=== PATIENT | male | born 1950 | race Caucasian/White ===

== ENCOUNTER 2020-03-04 20:48 | Emergency (ER) | payer MEDICARE, OTHER, SELFPAY ==
[2020-03-04 20:53] VITALS: BP 180/117; PULSE 97; RESP 20; TEMP 36.7; O2SAT 97; BMI 31.1
--- NOTE | 2020-03-04 20:57 | ED_ITS ---
HPI - Allergic Reaction General: Chief complaint: General Medical Stated complaint: ALLERGIC REACTION Time Seen by Provider: 03/04/20 20:52 Source: patient and EMS Mode of arrival: EMS Limitations: no limitations History of Present Illness: MD complaint: allergic reaction and hives Onset (ago): hour(s) Exposure: food Known history of allergy to: 70-year-old man brought in by EMS for allergic reaction. EMS states when they arrived his complaint of difficulty breathing along with hives. Patient given Benadryl and Solu-Medrol in route and is improved. He denies any shortness of breath and has no rash at this time. No known history of allergic reactions. Associated symptoms: Reports tongue swelling; Deny abdominal pain, nausea or vomiting Severity: mild Treatment prior to arrival: benadryl and steroids Review of Systems Const: Denies: fever(s), chills, body aches or change in appetite Eyes: Denies: blurry vision or eye discomfort ENMT: Denies: throat pain or dental pain Card: Denies: chest pain Resp: Reports: dyspnea GI: Denies: abdominal pain, nausea, vomiting or diarrhea : Denies: dysuria Musc: Denies: neck pain or back pain Skin/Breast: Denies: rash Neuro: Denies: headache(s) Psych: Denies: depression Delroy/Lymph: Denies: easy bruising All/Imm: Reports: urticaria and tongue swelling PFSH ED PFSH: Social History Smoking and tobacco status: never smoked Physical Exam Const: COMMON NORMALS: no acute distress, patient oriented x3 and healthy appearing HENMT: COMMON NORMALS: normocephalic and atraumatic HEAD & SCALP: normocephalic and atraumatic Eye: COMMON NORMALS: Equal, round and reactive pupils present and EOMs intact bilaterally PUPIL: Yes Equal, round and reactive pupils present Neck/C-Spine: COMMON NORMALS: full ROM and supple Chest: COMMONS NORMALS: normal inspection of the chest and normal palpation of entire chest wall Resp: COMMON NORMALS: normal respiratory effort, No retractions, No use of accessory muscles and clear to auscultation bilaterally AUSCULTATION: clear to auscultation bilaterally Cardio: COMMON NORMALS: regular rate, regular rhythm and No murmurs present (Cardio) RATE: regular rate RHYTHM: regular rhythm GI: COMMON NORMALS: Normal to inspection, nondistended, normoactive bowel sounds present, Soft to palpation, non-tender and no masses PALPATION: Yes Soft to palpation Extremity: COMMON NORMALS: normal to inspection and full ROM Neuro: COMMON NORMALS: patient oriented x3, moves all extremities and no focal motor deficits Psych: COMMON NORMALS: mental status grossly normal, Normal thought process present and cooperative THOUGHT PROCESS: Normal thought process present Skin: COMMON NORMALS: no rashes or lesions noted and no wounds GENERAL SKIN EXAM: no rashes or lesions noted Course Vital Signs: Vital signs: Vital Signs Temperature 98.0 F 03/04/20 20:53 Pulse Rate 68 03/04/20 21:23 Respiratory Rate 16 03/04/20 21:23 Blood Pressure 168/91 03/04/20 21:23 Pulse Oximetry 98 03/04/20 21:23 MDM - Allergic Reaction MDM Narrative: Medical decision making narrative: Bari presents here with allergic reaction since resolved. Patient is well-appearing here and has no signs of allergic reaction here. Patient was observed and had no return of symptoms. Patient is stable for discharge is to return if worsening. He understands and agrees to plan. Discharge Plan Discharge Patient Disposition: Home, Self-Care Clinical Impression: Allergic reaction Qualifiers: Encounter type: initial encounter Qualified Code(s): T78.40XA - Allergy, unspecified, initial encounter Condition: Stable Prescriptions: New EpiPen 0.3 mg/0.3 mL auto-injector 0.3 mg IM Q10M PRN (Reason: anaphylaxis) Qty: 1 RF: 0 No Action losartan 50 mg tablet 25 mg PO DAILY RF: 0 atorvastatin 20 mg tablet 40 mg PO DAILY RF: 0 lamotrigine 200 mg tablet 200 mg PO DAILY RF: 0 clopidogrel 75 mg tablet 75 mg PO DAILY RF: 0 allopurinol 100 mg tablet 200 mg PO DAILY RF: 0 aspirin 325 mg tablet,delayed release (DR/EC) 325 mg PO DAILY RF: 0 omeprazole 20 mg capsule,delayed release(DR/EC) 20 mg PO PRN PRN (Reason: HEARTBURN/GERD) RF: 0 metoprolol succinate 25 mg tablet extended release 24 hr 25 mg PO DAILY RF: 0 Vitamin D2 1,250 mcg (50,000 unit) Capsule 1,250 mcg PO Q7D RF: 0 Discharge Orders: Discharge Order (Routine); Ordered 03/04/20 Ordered By: Mary Fortune Referrals: Valentin Valiente, [Primary Care Provider] - 4-7 days Discharge Diet: Advance as tolerated Discharge Activity: Resume usual activity Patient Instructions: Urticaria (ED) Coding Level of Care Code ED [employer] Consultant for Chg Fwd Exam Comprehensive
[2020-03-04 21:23] VITALS: BP 168/91; PULSE 68; RESP 16; O2SAT 98
[2020-03-04] MEDS: diphenhydrAMINE 50 mg/mL SDV 1mL 25 MG IVP (21:37)
[2020-03-04] MEDS: famotidine 20 mg/2 mL INJ 40 MG IVP (21:37)
[2020-03-04 23:14] VITALS: BP 175/92; PULSE 65; RESP 16; O2SAT 100
--- NOTE | 2020-03-04 23:17 | PC.NURSE ---
Pt. up for discharge. Reports increased swelling to throat and mouth. MD Dominguez notified.
--- NOTE | 2020-03-04 23:26 | PC.NURSE ---
Pt. evaluated by . Cleared for discharge. IV D/C'd intact. Pressure dressing in place
[2020-03-04 23:27] VITALS: BP 164/88; PULSE 61; RESP 16; O2SAT 96
== END 2020-03-04 23:28 | disposition home or self-care (01) ==
PROVIDERS: Emergency Provider Emergency Medicine; PCP Family Medicine
DX: T78.40XA Allergy, unspecified, initial encounter (principal); Z79.02 Long term (current) use of antithrombotics/antiplatelets; Z79.82 Long term (current) use of aspirin
CPT/HCPCS: 12345; 96374; 96375; 99282; 99283; J1200; J3490

== ENCOUNTER 2020-03-12 10:40 | Outpatient (CLI) | payer MEDICARE, OTHER, SELFPAY ==
--- NOTE | 2020-03-12 10:50 | MR_ITS ---
WS: [id number] MRA HEAD TECHNIQUE: Axial 3-D TOF images obtained with axial images and axial, sagittal, and coronal 2-D refor matted images. CLINICAL INFORMATION: BASILAR ARTERY ANEURYSM COMPARISON: MRA 02/07/2019 and 06/08/2018 FINDINGS: Again seen is the basilar tip aneurysm measuring approximately 3.6 mm. This is unchanged in appearanc e since the prior examination. Distal vertebral arteries are patent. Normal vascularity to the [place] MANA[employer] te rritory bilaterally. Both ICAs are patent at the skull base. Normal vascularity to the WANDA and MCA te rritories bilaterally. Patent anterior communicating artery. Hypoplastic right A1 segment. 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 This is unchanged in a ppearance since the prior examinations. MR/MR angio head wo con [id number] IMPRESSION: 1. 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 2. Incidental normal variant hypoplastic right A1. 3. Otherwise unremarkable intracranial MRA. 4. No changes from 02/07/2019 and 06/08/2018
== END 2020-03-12 10:41 | disposition home or self-care (01) ==
LOC: RADSHAW 10:47
PROVIDERS: PCP Family Medicine; Visit Provider Specialist
DX: I72.5 Aneurysm of other precerebral arteries (principal)
CPT/HCPCS: 70544

== ENCOUNTER → 2020-03-25 10:37 | Outpatient (BNVA) | payer MEDICARE, OTHER, SELFPAY | PROVIDERS: PCP Family Medicine; Visit Provider Specialist | DX: G40.209 Localization-related (focal) (partial) symptomatic epilepsy and epileptic syndromes with complex partial seizures, not intractable, without status epilepticus (principal); I72.5 Aneurysm of other precerebral arteries | CPT/HCPCS: 99214 ==

== ENCOUNTER 2020-05-14 14:46 | Outpatient (CLI) | payer MEDICARE, OTHER, SELFPAY ==
--- NOTE | 2020-05-14 15:00 | USCV_ITS ---
Bari Oliva Age: 70 Gender: M : 1950 Exam Date: 05/14/2020 15:02 Ordering Phys: Robe Woodard MD ([email or web address]) Technologist: Boo Ashby Exam Location: [facility] – [place] Indication: BILATERAL CAROTID STENOSIS Risk Factors: Previous Vascular Surgery: LT CAROTID STENT Right Brachial BP: / Left Brachial BP: / Right Left Velocity (cm/s) Spectral Plaque Velocity (cm/s) Spectral Plaque Syst/Diast Broadening Syst/Diast Broadening 64.10/ 18.80 Prox CCA 114.70/ 24.30 67.60/ 16.30 Mid CCA 98.10 / 24.30 43.80/ 12.30 Distal CCA 103.60/ 26.50 155.10/43.40 Prox ICA 97.00 / 32.00 116.40/34.20 Mid ICA 98.10 / 29.80 98.20/ 25.60 Distal ICA 102.50/ 33.10 38.50 ECA 142.20 1.72 ICA/CCA 1.00 Antegrade Vertebral Antegrade 69.80/ 14.90 cm/s 93.70/ 24.30 cm/s Tri Subclavian Tri 83.70 143.3 0 FINDINGS Comparison:. 05/17/18. Left carotid stent is patent without stenosis. Diffuse plaque throughout the right carotid artery without significant stenosis. Antegrade vertebral arteries. CONCLUSIONS Bilateral ICA stenosis less than 50%. Moderate diffuse plaque right carotid. Dr. Vashti Proctor DO (Electronically Signed) Final Date: 15 May 2020 09:01 S
== END 2020-05-14 14:47 | disposition home or self-care (01) ==
LOC: US 14:47
PROVIDERS: PCP Family Medicine; Visit Provider Internal Medicine Cardiovascular Disease
DX: I65.23 Occlusion and stenosis of bilateral carotid arteries (principal)
CPT/HCPCS: 93880

== ENCOUNTER 2020-11-15 15:00 | Emergency (ER) | payer MEDICARE, OTHER, SELFPAY ==
[2020-11-15 15:04] VITALS: BP 201/84; PULSE 77; RESP 18; TEMP 36.7; O2SAT 98; BMI 30.9
--- NOTE | 2020-11-15 15:22 | CT_ITS ---
WS: [id number] CT HEAD NONCONTRAST HISTORY: STROKE ALERT TECHNIQUE: Contiguous axial imaging performed through the brain in 2.5 mm imaging. Bone and soft tiss ue windows. Sagittal and coronal reformats reviewed. All CT scans at [facility] use at ast one of these dose optimization techniques: automated exposure control; mA and/or kV adjustment pe r patient size (includes targeted exams where dose is matched to clinical indication); or iterative r econstruction. DLP: 883.70 mGy-cm. COMPARISON: 03/19/2019 No acute intracranial hemorrhage, midline shift or mass effect. Large remote LEFT posterior frontal and parietal infarct with encephalomalacia. Mild increase in size of the infarct but no acute change. Mild chronic microvascular ischemic disease in the RIGHT white m atter. Ventricles: Normal size with no hydrocephalus. Paranasal sinuses: As visualized are clear. Mastoid air cells: Well pneumatized. Calvarium and scalp: Skull is intact with no soft tissue edema or swelling. Moderate calcification and plaque in the distal carotid arteries. CT/CT head wo con* [id number] IMPRESSION: 1. No acute intracranial hemorrhage or edema. 2. Large remote LEFT frontal parietal infarct. Notified Ellen Bianchi MD [facility] [place], [place] at 11/15/2020 3:27 PM.
--- NOTE | 2020-11-15 15:28 | ECG_ITS ---
[facility] Test Date: 2020-11-15 Pat Name: Bari Oliva Department: Room: Gender: Male Fire Marshal: : 1950 Requested By: Ellen Bianchi I Order Number: [id number] Casper MD: Krystina Albrecht M.D. Measurements Intervals [place] Rate: 68 P: 74 WI: 229 QRS: -57 QRSD: 145 T: 61 QT: 402 QTc: 428 Interpretive Statements SINUS RHYTHM WITH FIRST DEGREE AV BLOCK RIGHT BUNDLE BRANCH BLOCK [120+ ms QRS DURATION, UPRIGHT V1, 40+ ms S IN I/aVL/V4/V5/V6] LEFT ANTERIOR FASCICULAR BLOCK [QRS AXIS <= -45, QR IN I, RS IN II] INFERIOR MYOCARDIAL INFARCTION , OF INDETERMINATE AGE [40+ ms Q WAVE AND/OR ST/T ABNORMALITY IN II/aVF] Compared to ECG 03/20/2019 00:19:10 Left anterior fascicular block now present Myocardial infarct finding now present Sinus bradycardia no longer present Indeterminate axis no longer present Electronically Signed On 11-15-2020 16:09:23 BRASS MOLDER by Krystina Albrecht M.D. [id number]
--- NOTE | 2020-11-15 15:30 | PC.NURSE ---
Patient blood glucose is 96, nurse and doctor were notified
[2020-11-15 15:33] LABS: Add Urine Microscopic? NO
[2020-11-15 15:39] LABS: Basophils % 0.6 %; Eosinophils # 0.1 10^3/uL (0.0-0.8); Eosinophils % 2.1 %; Hematocrit 45.4 % (42.0-52.0); Hemoglobin 15.2 g/dL (11.7-16.6); Lymphocytes # 1.1 10^3/uL (0.8-4.8); Lymphocytes % 16.1 %; Mean Corpuscular HGB Conc 33.5 g/dL (30.0-36.0); Mean Corpuscular Hemoglobin 30.8 pg (28.0-34.0); Mean Corpuscular Volume 91.9 fL (80-94); Mean Platelet Volume 9.6 fL (7.4-10.4); Monocytes # 0.7 10^3/uL (0.2-0.9); Monocytes % 9.8 %; Neutrophils # 4.69 10^3/uL (1.8-7.7); Neutrophils % 71.1 %; Nucleated Red Blood Cells % 0 %; Platelet Count 204 10^3/cmm (130-400); Red Blood Count 4.94 10^6/uL (4.1-5.3); Red Cell Distribution Width 12.3 % (12.1-15.1); White Blood Count 6.6 10^3/uL (4.0-10.0)
[2020-11-15 15:46] LABS: INR 0.99 (0.8-1.2)
[2020-11-15 15:47] LABS: Partial Thromboplastin Time 29.5 SECONDS (23.9-36.7)
[2020-11-15 15:53] LABS: Alanine Aminotransferase 24 U/L (0-41); Albumin Level 4.4 g/dL (3.5-5.2); Alkaline Phosphatase 135 IU/L (40-130); Anion Gap 11.9 (5-19); Aspartate Amino Transferase 24 U/L (0-40); Bilirubin Urine Neg (Negative); Blood Urea Nitrogen 15 mg/dL (8-23); Blood Urine Neg (Negative); Calcium 9.3 mg/dL (8.5-10.5); Carbon Dioxide 30 mmol/L (22-29); Chloride 102 mmol/L (98-107); Globulin 2.9 g/dL (1.3-4.6); Glomerular Filtration Rate 95.8 mL/min (90-130); Glucose 91 mg/dL (65-115); Glucose Urine UA Norm (Normal); Ketones Urine Negative (Negative); Leukocyte Esterase Urine Negative (Negative); Nitrate Urine Negative (Negative); Osmolality Calculated 290 mOsm/kg (285-295); Potassium 3.9 mmol/L (3.5-5.1); Protein Urine Neg (Negative); Sodium 140 mmol/L (136-145); Specific Gravity, Urine 1.005 (1.005-1.030); Total Bilirubin 0.4 mg/dL (0.15-1.2); Total Protein 7.3 g/dL (6.6-8.7); Urine Appearance Clear (CLEAR); Urine Color Colorless (Yellow); Urobilinogen Urine Norm (Negative); pH Urine 6 (5-7)
[2020-11-15 15:57] LABS: Amphetamines Screen Urine Negative (Negative); Barbiturates Screen Urine Negative (Negative); Benzodiazepines Screen Urine Negative (Negative); Cocaine Screen Urine Negative (Negative); Opiate Screen Urine Negative (Negative); PCP Screen Urine Negative (Negative); THC Screen Urine Negative (Negative)
--- NOTE | 2020-11-15 16:00 | CTR_ITS ---
PROCEDURE INFORMATION: Exam: CT Angiography Head With Contrast Exam date and time: 11/15/2020 4:28 PM Age: 70 years old Clinical indication: Prior surgery; Surgery date: 6+ months; Surgery type: Carotid; Patient HX: R sided weakness, dizziness, HTN HX of CVA; Additional info: Stroke-like symptoms TECHNIQUE: Imaging protocol: Computed tomography angiography of the head with intravenous contrast. 3D rendering (Not supervised by radiologist): MIP and/or 3D reconstructed images were created by the technologist. Radiation optimization: All CT scans at this facility use at least one of these dose optimization techniques: automated exposure control; mA and/or kV adjustment per patient size (includes targeted exams where dose is matched to clinical indication); or iterative reconstruction. Contrast material: OMNI 350; Contrast volume: 95 ml; Contrast route: INTRAVENOUS (IV); COMPARISON: CT head wo con* [id number] 11/15/2020 3:32 PM RADIATION DOSE METRICS: Total DLP (mGy-cm): 2501.88 FINDINGS: ANTERIOR CIRCULATION: Right internal carotid artery: Unremarkable. Intracranial segment is patent with no significant stenosis. No aneurysm. Right middle cerebral artery: Unremarkable. No occlusion or significant stenosis. No aneurysm. Right anterior cerebral artery: Unremarkable. No occlusion or significant stenosis. No aneurysm. Left internal carotid artery: Unremarkable. Intracranial segment is patent with no significant stenosis. No aneurysm. Left middle cerebral artery: Unremarkable. No occlusion or significant stenosis. No aneurysm. Left anterior cerebral artery: Unremarkable. No occlusion or significant stenosis. No aneurysm. POSTERIOR CIRCULATION: Right vertebral artery: Unremarkable. No occlusion or significant stenosis. No aneurysm. Left vertebral artery: Unremarkable. No occlusion or significant stenosis. No aneurysm. Basilar artery: Unremarkable. No occlusion or significant stenosis. No aneurysm. Right posterior cerebral artery: Unremarkable. No occlusion or significant stenosis. No aneurysm. Left posterior cerebral artery: Unremarkable. No occlusion or significant stenosis. No aneurysm. Brain: Old area of encephalomalacia in the posterior left frontal lobe. No intracranial hemorrhage. No midline shift of brain. Cerebral ventricles: No ventriculomegaly. Orbital cavity: Left globe lens replacement. Orbits otherwise unremarkable. Bones/joints: Unremarkable. No acute fracture. Soft tissues: Unremarkable. IMPRESSION: Unremarkable CT angiogram head. No acute large arterial vessel occlusion identified. PROCEDURE INFORMATION: Exam: CT Angiography Neck With Contrast Exam date and time: 11/15/2020 4:28 PM Age: 70 years old Clinical indication: Prior surgery; Surgery date: 6+ months; Surgery type: Carotid; Patient HX: R sided weakness, dizziness, HTN HX of CVA; Additional info: Stroke-like symptoms TECHNIQUE: Imaging protocol: Computed tomography angiography of the neck with intravenous contrast. 3D rendering (Not supervised by radiologist): MIP and/or 3D reconstructed images were created by the technologist. Radiation optimization: All CT scans at this facility use at least one of these dose optimization techniques: automated exposure control; mA and/or kV adjustment per patient size (includes targeted exams where dose is matched to clinical indication); or iterative reconstruction. Contrast material: OMNI 350; Contrast volume: 95 ml; Contrast route: INTRAVENOUS (IV); COMPARISON: CT head wo con* [id number] 11/15/2020 3:32 PM RADIATION DOSE METRICS: Total DLP (mGy-cm): 2501.88 FINDINGS: Right common carotid artery: No significant stenosis. No dissection or occlusion. Mild to moderate atherosclerotic plaque. Right internal carotid artery: Large atherosclerotic plaque volume at the origin of the right internal carotid artery with severe stenosis estimated greater than 70%. Right external carotid artery: Large atherosclerotic plaque volume at the origin of the right external carotid artery with severe stenosis greater than 90%. Right vertebral artery: No stenosis. No dissection or occlusion. Left common carotid artery: Moderate circumferential calcified and noncalcified atherosclerotic plaque left common carotid artery with mild stenosis significantly less than 50%. Endovascular stent within the distal left common carotid artery extends into the proximal left internal carotid artery. The stent is patent. Mild stenosis in the distal margin of the stent approaching 50%, however appears less than 50% at this time. Left internal carotid artery: No occlusion. No dissection. Proximal portion is stented. Mild stenosis approaching 50% in the distal portion. Left external carotid artery: Large atherosclerotic plaque volume at the origin of the left external carotid artery which is also covered by the endovascular stent. Left vertebral artery: No stenosis. No dissection or occlusion. Bones/joints: No acute fracture. Soft tissues: Normal. No significant soft tissue swelling. CT/CT angio headneck* [id number] IMPRESSION: 1. No acute arterial occlusion in the neck. 2. Left carotid artery stenting without complication. 3. Severe stenosis of the right internal carotid artery estimated greater than 70%. 4. Recommend carotid artery evaluation with duplex ultrasound analysis. REFERENCES: NASCET CRITERIA. The degree of internal carotid artery stenosis is based on NASCET criteria. Normal is no stenosis. Mild is less than 50% stenosis. Moderate is 50-69% stenosis. Severe is 70% to 99% stenosis. Total occlusion is no detectable patent lumen. Radiation Dose CTDIVOL = (mGy): DLP = 2501.88~2501.88 (mGy-cm)
[2020-11-15] MEDS: iohexol 350 mg/mL 100 mL Btl IV (16:41)
--- NOTE | 2020-11-15 17:35 | W.ED.NEUROSD ---
HPI - Neuro Symptoms/Deficit General: Chief Complaint: Neuro Symptoms/Deficit Stated Complaint: pt suspects stroke Time Seen by Provider: 11/15/20 15:28 Source: patient, family and EMS Mode of arrival: EMS Limitations: no limitations History of Present Illness: HPI Narrative: The patient is a 70-year-old male with a prior history of CVA x3, he has residual right-sided weakness. He states that today about 2 hours prior to arrival he noticed his right upper and lower extremities were he also felt his coordination was not the same. He therefore came in for evaluation. He denies any chest pain, denies any dizziness, denies any shortness of breath. Onset (ago): hour(s) (2) Location: right arm and right leg History of same: Yes Severity: mild Quality: weak Relieving factors: none Exacerbating factors: none Context: sudden onset On Anticoagulants: No Associated symptoms: Deny chest pain, cough, diaphoresis, fevers/chills, headache(s), anorexia, malaise, nausea, seizures, short of breath, syncope, tingling, vertigo, vomiting or weakness Treatments Prior to Arrival: none Review of Systems General: Reports: 10 or more systems reviewed and unremarkable except in HPI and below Const: Denies: malaise or diaphoresis Eyes: Denies: change in vision or blurry vision ENMT: Denies: throat pain, enlarged tonsils, odynophagia, hoarseness, mouth pain or swelling of lips/tongue Card: Denies: chest pain or syncope Resp: Denies: dyspnea, productive cough or non-productive cough GI: Denies: nausea or vomiting : Denies: flank pain, dysuria, urinary frequency, urinary urgency or urinary hesitancy Musc: Denies: neck pain, back pain or extremity swelling Skin/Breast: Denies: rash, pruritus or erythema Neuro: Denies: headache(s) or vertigo Endo: Denies: polyuria, polydipsia or tired all the time [facility] ED PFSH: Medical History Carotid stenosis, bilateral CVA (cerebral vascular accident) History of common carotid artery stent placement FLOWER (obstructive sleep apnea) PVD (peripheral vascular disease) Family History Mother Cancer LUNG Grandmother Stroke MATERNAL Social History Smoking and tobacco status: former smoker Marital status: History of recent travel: No NIH stroke score NIHSS: Level Of Consciousness - 1a: 0 Level Of Consciousness Questions - 1b: Both Correct Level Of Consciousness Commands - 1c: Both Correct Best Gaze - 2: Normal Visual Moralez - 3: No Visual Loss Facial Palsy - 4: Normal Motor Arm Right - 5: No Drift Motor Arm Left - 5: No Drift Motor Leg Right - 6: No Drift Motor Leg Left - 6: No Drift Limb Ataxia - 7: Present In One Limb (right upper extremity) Sensory - 8: Mild To Moderate Loss Best Language - 9: No Aphasia Dysarthia - 10: Normal Extinction And Inattention - 11: 0 Score: Total Score: 2 Physical Exam Const: COMMON NORMALS: no acute distress, average body habitus, patient oriented x3, no limitations, healthy appearing, alert and well nourished HENMT: COMMON NORMALS: normocephalic, atraumatic and moist oral mucous membranes HEAD & SCALP: normocephalic and atraumatic Eye: COMMON NORMALS: Equal, round and reactive pupils present, EOMs intact bilaterally, conjunctivae normal and no scleral icterus CONJUNCTIVA: Yes conjunctivae normal PUPIL: Yes Equal, round and reactive pupils present Neck/C-Spine: COMMON NORMALS: no meningeal signs and no JVD Resp: COMMON NORMALS: normal respiratory effort, No retractions, No use of accessory muscles, clear to auscultation bilaterally and percussion normal AUSCULTATION: clear to auscultation bilaterally PERCUSSION: percussion normal Cardio: COMMON NORMALS: no JVD, regular rate, regular rhythm, S1 normal heart sound present, S2 normal heart sound present, No gallops present (Cardio), No clicks present (Cardio), No murmurs present (Cardio), No rub (Cardio) and Peripheral pulses 2+ throughout RATE: regular rate RHYTHM: regular rhythm HEART SOUNDS: S1 normal heart sound present and S2 normal heart sound present PERIPHERAL PULSES: Peripheral pulses 2+ throughout GI: COMMON NORMALS: Normal to inspection, nondistended, normoactive bowel sounds present, Soft to palpation, non-tender, No hepatosplenomegaly present, no masses and no bruits PALPATION: Yes Soft to palpation and Yes No hepatosplenomegaly present Extremity: COMMON NORMALS: normal to inspection, full ROM, capillary refill normal, no calf tenderness and no pedal edema Neuro: COMMON NORMALS: patient oriented x3 SENSORIUM/ORIENTATION: Yes alert MENINGEAL SIGNS: Yes no meningeal signs Skin: COMMON NORMALS: no rashes or lesions noted, no wounds, turgor normal, no jaundice, no petechiae and no mottling GENERAL SKIN EXAM: no rashes or lesions noted and turgor normal Course Reevaluation(s): Reevaluation #1: Discussed his lab and imaging findings with him including his head CT and head and neck CTA. Explained that he has a right carotid artery stenosis of at least 70%. Discussed options with him including hospital admission versus outpatient therapy. The patient elected to be discharged home and already has a carotid Doppler scheduled. I will put in an order to case management to see if we can get the Doppler done sooner to see if he needs surgery since he has some symptoms. NIHSS is low and symptoms are resolved so I think it is reasonable for him to be discharged home. Time: 17:36 Consultations: Consultation #1: Discussed the patient with Dr. Ponce, neurologist. She does not think this is a new CVA. She states that the patient is well known to her. She will therefore sign off on the care. Time: 15:35 Vital Signs: Vital signs: Vital Signs Temperature 98.1 F 11/15/20 15:04 Pulse Rate 63 11/15/20 17:58 Respiratory Rate 18 11/15/20 17:58 Blood Pressure 121/75 11/15/20 17:58 Pulse Oximetry 95 11/15/20 17:58 MDM - Neuro Symptoms/Deficit MDM Narrative: Medical decision making narrative: Patient is a 70 year old male with a prior history of CVA who presents to the emergency department with subjective feeling of right-sided weakness that is worse than his baseline. On examination there is no appreciable deficits on the right side. NIHSS is pretty low at 2. Head CT negative, head and neck CTA shows right carotid artery disease. The patient already knows this and is scheduled for a carotid Doppler in March. The patient opted to be discharged home instead of admission for further work-up. Since he is NIHSS is low and he is on the appropriate medical therapy I think it is reasonable for him to be discharged home. Will try to get him to get his carotid doppler sooner than March since he is symptomatic. Medical Records: Attestation: I reviewed the patient's medical records. Lab Data: Attestation: I reviewed the patient's lab results. Labs: Lab Results 11/15/20 11/15/20 11/15/20 Range/Units 15:28 15:28 15:28 WBC 6.6 (4.0-10.0) 10^3/ uL RBC 4.94 (4.1-5.3) 10^6/u L Hgb 15.2 (11.7-16.6) g/dL Hct 45.4 (42.0-52.0) % MCV 91.9 (80-94) fL MCH 30.8 (28.0-34.0) pg MCHC 33.5 (30.0-36.0) g/dL RDW 12.3 (12.1-15.1) % Plt Count 204 (130-400) 10^3/c mm MPV 9.6 (7.4-10.4) fL Neut % (Auto) 71.1 % Lymph % (Auto) 16.1 % Amelia % (Auto) 9.8 % Eos % (Auto) 2.1 % Baso % (Auto) 0.6 % Neut # (Auto) 4.69 (1.8-7.7) 10^3/u L Lymph # (Auto) 1.1 (0.8-4.8) 10^3/u L Amelia # (Auto) 0.7 (0.2-0.9) 10^3/u L Eos # (Auto) 0.1 (0.0-0.8) 10^3/u L Baso # (Auto) 0.0 (0.0-0.1) 10^3/u L Nucleated RBC % (a uto) 0 % Nucleated RBCs # 0.0 /100WBC PT 13.40 (12.1-14.9) SECO NDS INR 0.99 (0.8-1.2) APTT 29.5 (23.9-36.7) SECO NDS Sodium 140 (136-145) mmol/L Potassium 3.9 (3.5-5.1) mmol/L Chloride 102 (98-107) mmol/L Carbon Dioxide 30 H (22-29) mmol/L Anion Gap 11.9 (5-19) BUN 15 (8-23) mg/dL Creatinine 0.8 (0.7-1.2) mg/dL GFR Calculation 95.8 (90-130) mL/min Glucose 91 (65-115) mg/dL Calculated Osmolal ity 290 (285-295) mOsm/k g Calcium 9.3 (8.5-10.5) mg/dL Total Bilirubin 0.4 (0.15-1.2) mg/dL AST 24 (0-40) U/L ALT 24 (0-41) U/L Alkaline Phosphata se 135 H (40-130) IU/L Total Protein 7.3 (6.6-8.7) g/dL Albumin 4.4 (3.5-5.2) g/dL Globulin 2.9 (1.3-4.6) g/dL Urine Color (Yellow) Urine Appearance (CLEAR) Urine pH (5-7) Ur Specific Gravit y (1.005-1.030) Urine Protein (Negative) Urine Glucose (UA) (Normal) Urine Ketones (Negative) Urine Blood (Negative) Urine Nitrate (Negative) Urine Bilirubin (Negative) Urine Urobilinogen (Negative) mg/dL Ur Leukocyte Jeanine ase (Negative) Urine Opiates Scre en (Negative) ng/mL Ur Barbiturates Sc reen (Negative) ng/mL Ur Phencyclidine S crn (Negative) ng/mL Ur Amphetamines Sc reen (Negative) ng/mL U Benzodiazepines Scrn (Negative) ng/mL Urine Cocaine Scre en (Negative) ng/mL U Marijuana (THC) Screen (Negative) ng/mL 11/15/20 11/15/20 Range/Units 15:28 15:28 WBC (4.0-10.0) 10^3/ uL RBC (4.1-5.3) 10^6/u L Hgb (11.7-16.6) g/dL Hct (42.0-52.0) % MCV (80-94) fL MCH (28.0-34.0) pg MCHC (30.0-36.0) g/dL RDW (12.1-15.1) % Plt Count (130-400) 10^3/c mm MPV (7.4-10.4) fL Neut % (Auto) % Lymph % (Auto) % Amelia % (Auto) % Eos % (Auto) % Baso % (Auto) % Neut # (Auto) (1.8-7.7) 10^3/u L Lymph # (Auto) (0.8-4.8) 10^3/u L Amelia # (Auto) (0.2-0.9) 10^3/u L Eos # (Auto) (0.0-0.8) 10^3/u L Baso # (Auto) (0.0-0.1) 10^3/u L Nucleated RBC % (a uto) % Nucleated RBCs # /100WBC PT (12.1-14.9) SECO NDS INR (0.8-1.2) APTT (23.9-36.7) SECO NDS Sodium (136-145) mmol/L Potassium (3.5-5.1) mmol/L Chloride (98-107) mmol/L Carbon Dioxide (22-29) mmol/L Anion Gap (5-19) BUN (8-23) mg/dL Creatinine (0.7-1.2) mg/dL GFR Calculation (90-130) mL/min Glucose (65-115) mg/dL Calculated Osmolal ity (285-295) mOsm/k g Calcium (8.5-10.5) mg/dL Total Bilirubin (0.15-1.2) mg/dL AST (0-40) U/L ALT (0-41) U/L Alkaline Phosphata se (40-130) IU/L Total Protein (6.6-8.7) g/dL Albumin (3.5-5.2) g/dL Globulin (1.3-4.6) g/dL Urine Color Colorless (Yellow) Urine Appearance Clear (CLEAR) Urine pH 6 (5-7) Ur Specific Gravit y 1.005 (1.005-1.030) Urine Protein Neg (Negative) Urine Glucose (UA) Norm (Normal) Urine Ketones Negative (Negative) Urine Blood Neg (Negative) Urine Nitrate Negative (Negative) Urine Bilirubin Neg (Negative) Urine Urobilinogen Norm (Negative) mg/dL Ur Leukocyte Jeanine ase Negative (Negative) Urine Opiates Scre en Negative (Negative) ng/mL Ur Barbiturates Sc reen Negative (Negative) ng/mL Ur Phencyclidine S crn Negative (Negative) ng/mL Ur Amphetamines Sc reen Negative (Negative) ng/mL U Benzodiazepines Scrn Negative (Negative) ng/mL Urine Cocaine Scre en Negative (Negative) ng/mL U Marijuana (THC) Screen Negative (Negative) ng/mL Imaging Data^: CT Head: Attestation: I personally reviewed and interpreted this imaging study as follows: Radiologist's impression: [facility] [address] [facility] [address] CT Scan Report Signed Patient: Bari Oliva #: [id number] : 1Acct#:[id number] Age/Sex: 70 / MADM Date: 11/15/20 Loc: ERRoom/Bed: Attending Dr: Ordering Provider/Ordering MD: Ellen Bianchi MD, [facility] Date of Service: 11/15/20 Procedure(s): CT head wo con* [id number] Accession Number(s): [id number] Report Number: [id number] WS: [id number] CT HEAD NONCONTRAST HISTORY: STROKE ALERT TECHNIQUE: Contiguous axial imaging performed through the brain in 2.5 mm imaging. Bone and soft tissue windows. Sagittal and coronal reformats reviewed. All CT scans at [facility] use at least one of these dose optimization techniques: automated exposure control; mA and/or kV adjustment per patient size (includes targeted exams where dose is matched to clinical indication); or iterative reconstruction. DLP: 883.70 mGy-cm. COMPARISON: 03/19/2019 No acute intracranial hemorrhage, midline shift or mass effect. Large remote LEFT posterior frontal and parietal infarct with encephalomalacia. Mild increase in size of the infarct but no acute change. Mild chronic microvascular ischemic disease in the RIGHT white matter. Ventricles: Normal size with no hydrocephalus. Paranasal sinuses: As visualized are clear. Mastoid air cells: Well pneumatized. Calvarium and scalp: Skull is intact with no soft tissue edema or swelling. Moderate calcification and plaque in the distal carotid arteries. CT/CT head wo con* [id number] IMPRESSION: 1. No acute intracranial hemorrhage or edema. 2. Large remote LEFT frontal parietal infarct. Notified Ellen Bianchi MD [facility] at 11/15/2020 3:27 PM. Dictated By:Vashti Proctor DO Signed By:Vashti Proctor DOSigned Date/Time:11/15/20 1528 DD/ [address]: Attestation: I personally reviewed and interpreted this imaging study as follows: Radiologist's impression: [address] [address] [address] Scan Report Signed Patient: Bari Oliva #: [id number] : 1950cct#:[id number] Age/Sex: 70 / MADM Date: 11/15/20 Loc: ERRoom/Bed: Attending Dr: Ordering Provider/Ordering MD: Ellen Bianchi MD, [facility] Date of Service: 11/15/20 Procedure(s): CT angio headneck* [id number] Accession Number(s): [id number] Report Number: [id number] PROCEDURE INFORMATION: Exam: CT Angiography Head With Contrast Exam date and time: 11/15/2020 4:28 PM Age: 70 years old Clinical indication: Prior surgery; Surgery date: 6+ months; Surgery type: Carotid; Patient HX: R sided weakness, dizziness, HTN HX of CVA; Additional info: Stroke-like symptoms TECHNIQUE: Imaging protocol: Computed tomography angiography of the head with intravenous contrast. 3D rendering (Not supervised by radiologist): MIP and/or 3D reconstructed images were created by the technologist. Radiation optimization: All CT scans at this facility use at least one of these dose optimization techniques: automated exposure control; mA and/or kV adjustment per patient size (includes targeted exams where dose is matched to clinical indication); or iterative reconstruction. Contrast material: OMNI 350; Contrast volume: 95 ml; Contrast route: INTRAVENOUS (IV); COMPARISON: CT head wo con* [id number] 11/15/2020 3:32 PM RADIATION DOSE METRICS: Total DLP (mGy-cm): 2501.88 FINDINGS: ANTERIOR CIRCULATION: Right internal carotid artery: Unremarkable. Intracranial segment is patent with no significant stenosis. No aneurysm. Right middle cerebral artery: Unremarkable. No occlusion or significant stenosis. No aneurysm. Right anterior cerebral artery: Unremarkable. No occlusion or significant stenosis. No aneurysm. Left internal carotid artery: Unremarkable. Intracranial segment is patent with no significant stenosis. No aneurysm. Left middle cerebral artery: Unremarkable. No occlusion or significant stenosis. No aneurysm. Left anterior cerebral artery: Unremarkable. No occlusion or significant stenosis. No aneurysm. POSTERIOR CIRCULATION: Right vertebral artery: Unremarkable. No occlusion or significant stenosis. No aneurysm. Left vertebral artery: Unremarkable. No occlusion or significant stenosis. No aneurysm. Basilar artery: Unremarkable. No occlusion or significant stenosis. No aneurysm. Right posterior cerebral artery: Unremarkable. No occlusion or significant stenosis. No aneurysm. Left posterior cerebral artery: Unremarkable. No occlusion or significant stenosis. No aneurysm. Brain: Old area of encephalomalacia in the posterior left frontal lobe. No intracranial hemorrhage. No midline shift of brain. Cerebral ventricles: No ventriculomegaly. Orbital cavity: Left globe lens replacement. Orbits otherwise unremarkable. Bones/joints: Unremarkable. No acute fracture. Soft tissues: Unremarkable. IMPRESSION: Unremarkable CT angiogram head. No acute large arterial vessel occlusion identified. PROCEDURE INFORMATION: Exam: CT Angiography Neck With Contrast Exam date and time: 11/15/2020 4:28 PM Age: 70 years old Clinical indication: Prior surgery; Surgery date: 6+ months; Surgery type: Carotid; Patient HX: R sided weakness, dizziness, HTN HX of CVA; Additional info: Stroke-like symptoms TECHNIQUE: Imaging protocol: Computed tomography angiography of the neck with intravenous contrast. 3D rendering (Not supervised by radiologist): MIP and/or 3D reconstructed images were created by the technologist. Radiation optimization: All CT scans at this facility use at least one of these dose optimization techniques: automated exposure control; mA and/or kV adjustment per patient size (includes targeted exams where dose is matched to clinical indication); or iterative reconstruction. Contrast material: OMNI 350; Contrast volume: 95 ml; Contrast route: INTRAVENOUS (IV); COMPARISON: CT head wo con* [id number] 11/15/2020 3:32 PM RADIATION DOSE METRICS: Total DLP (mGy-cm): 2501.88 FINDINGS: Right common carotid artery: No significant stenosis. No dissection or occlusion. Mild to moderate atherosclerotic plaque. Right internal carotid artery: Large atherosclerotic plaque volume at the origin of the right internal carotid artery with severe stenosis estimated greater than 70%. Right external carotid artery: Large atherosclerotic plaque volume at the origin of the right external carotid artery with severe stenosis greater than 90%. Right vertebral artery: No stenosis. No dissection or occlusion. Left common carotid artery: Moderate circumferential calcified and noncalcified atherosclerotic plaque left common carotid artery with mild stenosis significantly less than 50%. Endovascular stent within the distal left common carotid artery extends into the proximal left internal carotid artery. The stent is patent. Mild stenosis in the distal margin of the stent approaching 50%, however appears less than 50% at this time. Left internal carotid artery: No occlusion. No dissection. Proximal portion is stented. Mild stenosis approaching 50% in the distal portion. Left external carotid artery: Large atherosclerotic plaque volume at the origin of the left external carotid artery which is also covered by the endovascular stent. Left vertebral artery: No stenosis. No dissection or occlusion. Bones/joints: No acute fracture. Soft tissues: Normal. No significant soft tissue swelling. CT/CT angio headneck* [id number] IMPRESSION: 1. No acute arterial occlusion in the neck. 2. Left carotid artery stenting without complication. 3. Severe stenosis of the right internal carotid artery estimated greater than 70%. 4. Recommend carotid artery evaluation with duplex ultrasound analysis. REFERENCES: NASCET CRITERIA. The degree of internal carotid artery stenosis is based on NASCET criteria. Normal is no stenosis. Mild is less than 50% stenosis. Moderate is 50-69% stenosis. Severe is 70% to 99% stenosis. Total occlusion is no detectable patent lumen. Radiation Dose CTDIVOL = (mGy): DLP = 2501.88~2501.88 (mGy-cm) Dictated By:Robe Luna Signed By:Sussy Luna Date/Time:11/15/201714 DD/ 12 EKG Data^: EKG 1: Attestation: I personally reviewed and interpreted this EKG as follows: EKG interpretation date: 11/15/20 EKG interpretation time: 15:26 Prior EKG tracings: not available for review Interpretation: Sinus rhythm with first-degree AV block. Heart rate 68 bpm. Right bundle branch block. Left anterior fascicular block. No ST changes. Discharge Plan Discharge Patient Disposition: Home Clinical Impression: Carotid stenosis, bilateral Transient cerebral ischemia Qualifiers: Transient cerebral ischemia type: unspecified Qualified Code(s): G45.9 - Transient cerebral ischemic attack, unspecified Condition: Stable Prescriptions: Continued clopidogrel 75 mg tablet 75 mg PO DAILY@09 RF: 0 epinephrine [EpiPen] 0.3 mg/0.3 mL auto-injector 0.3 mg IM Q10M PRN (Reason: anaphylaxis) Qty: 1 RF: 0 losartan 50 mg tablet 25 mg PO DAILY@09 RF: 0 atorvastatin 20 mg tablet 20 mg PO DAILY@21 RF: 0 allopurinol 100 mg tablet 200 mg PO DAILY@09 RF: 0 aspirin 325 mg tablet,delayed release (DR/EC) 325 mg PO DAILY@09 RF: 0 omeprazole 20 mg capsule,delayed release(DR/EC) 20 mg PO QPM PRN (Reason: Heartburn) RF: 0 ergocalciferol (vitamin D2) [Vitamin D2] 1,250 mcg (50,000 unit) Capsule 50,000 unit PO Q7D RF: 0 metoprolol succinate 25 mg tablet extended release 24 hr 12.5 mg PO DAILY@09 RF: 0 lamotrigine 200 mg tablet 200 mg PO BID@ RF: 0 Discharge Orders: Discharge ED (Routine); Ordered 11/15/20 Ordered By: Ellen Bianchi Referrals: Valentin Valiente DO [Primary Care Provider] - 1-3 days Discharge Diet: Usual diet Discharge Activity: Increase activity as tolerated Patient Instructions: Transient Ischemic Attack (ED), Carotid Artery Disease (GEN) Activity Restrictions/Additional Instructions: Return for any new or worsening symptoms. Follow-up with your primary care provider within 3 days. You will be contacted to see if we can get a carotid ultrasound done sooner than it is already scheduled. Continue home medications. Coding Level of Care Code ED Human Resources Assistant Manager for Bre Fwd Exam Comprehensive
[2020-11-15 17:58] VITALS: BP 121/75; PULSE 63; RESP 18; O2SAT 95
--- NOTE | 2020-11-18 12:18 | DCPLANNER ---
commodity manager had message to speak with centralized scheduling to see if patients appointment for the carotid doppler could be moved up any sooner than when it was scheduled at this time. commodity manager called centralized scheduling, spoke with Allie, asked if the procedure could be moved up. commodity manager was told that either Dr. Bianchi could write a new order for patient and send it to centralized scheduling. commodity manager was also told that embedded case manager could call the office of Dr. Narayanan, and ask if the ordering physician would send a message to centralized scheduling to move the scheduled date up. Dr. Bianchi is not working in the ER today, so embedded case manager called [facility] and spoke with Divya. commodity manager explained that patient was recently seen in the ER and that the ER physician would like for the carotid duplex that is scheduled to be moved up. commodity manager asked if a message could be sent to the ordering physician to see if this was possible for the appointment to be moved up. commodity manager was told that a message was sent to Dr. Bill nurse to see if appointment could be moved up.
--- NOTE | 2020-11-26 08:05 | DCPLANNER ---
Patient had a follow up appointment scheduled for 11.25.20 for a carotid duplex - patient did attend appointment.
== END 2020-11-15 17:59 | disposition home or self-care (01) ==
PROVIDERS: Emergency Provider Family Medicine; PCP Family Medicine
DX: I65.23 Occlusion and stenosis of bilateral carotid arteries (principal); G45.9 Transient cerebral ischemic attack, unspecified; Z79.82 Long term (current) use of aspirin; Z79.02 Long term (current) use of antithrombotics/antiplatelets; Z86.73 Personal history of transient ischemic attack (TIA), and cerebral infarction without residual deficits; Z87.891 Personal history of nicotine dependence; Z79.899 Other long term (current) drug therapy
CPT/HCPCS: 70450; 70496; 70498; 80053; 80306; 81003; 85025; 85610; 85730; 93005; 99283; Q9967

== ENCOUNTER 2020-11-25 12:41 | Outpatient (CLI) | payer MEDICARE, OTHER, SELFPAY ==
--- NOTE | 2020-11-25 12:45 | USCV_ITS ---
Bari Oliva Age: 70 Gender: M : 1950 Exam Date: 11/25/2020 13:16 Ordering Phys: Charlie Conn M.D ([email or web address]) Technologist: Boo Ashby Exam Location: [facility] Indication: OCCLUSION AND STENOSIS OF BILATERAL CAROTID ARTERIES Risk Factors: Previous Vascular Surgery: LT ICA STENT Right Brachial BP: / Left Brachial BP: / Right Left Velocity (cm/s) Spectral Plaque Velocity (cm/s) Spectral Plaque Syst/Diast Broadening Syst/Diast Broadening 72.20/ 11.10 Prox CCA 82.20 / 19.10 55.90/ 13.80 Mid CCA 80.00 / 20.20 51.30/ 12.00 Distal CCA 87.00 / 17.10 126.70/34.40 Prox ICA 57.50 / 15.50 96.05/ 27.20 Mid ICA 97.40 / 36.70 78.60/ 22.60 Distal ICA 79.50 / 30.80 30.80 ECA 159.10 2.27 ICA/CCA 1.22 Antegrade Vertebral Antegrade 70.80/ 18.70 cm/s 67.50/ 22.20 cm/s Tri Subclavian Tri 62.00 95.70 FINDINGS Comparison:. 05/14/20. Diffuse bilateral scattered calcified plaque and intimal thickening throughout the common carotid arteries and extending through the bifurcation. Tortuosity and mild elevation of velocities. Antegrade vertebral arteries. CONCLUSIONS Bilateral ICA stenosis less than 50%. No interval change in stenosis since prior exam. Diffuse mild atherosclerosis. Dr. Vashti Proctor DO (Electronically Signed) Final Date: 25 November 2020 16:11 S
== END 2020-11-25 12:42 | disposition home or self-care (01) ==
LOC: RAD 12:42
PROVIDERS: PCP Family Medicine; Visit Provider Internal Medicine
DX: I65.23 Occlusion and stenosis of bilateral carotid arteries (principal)
CPT/HCPCS: 93880

== ENCOUNTER → 2021-07-28 14:57 | Outpatient (BNVA) | payer MEDICARE, OTHER, SELFPAY | PROVIDERS: PCP Family Medicine; Visit Provider Specialist | DX: G40.209 Localization-related (focal) (partial) symptomatic epilepsy and epileptic syndromes with complex partial seizures, not intractable, without status epilepticus (principal); I65.21 Occlusion and stenosis of right carotid artery; I72.5 Aneurysm of other precerebral arteries; I73.9 Peripheral vascular disease, unspecified; Z98.890 Other specified postprocedural states; Z95.828 Presence of other vascular implants and grafts; G47.33 Obstructive sleep apnea (adult) (pediatric); Z71.89 Other specified counseling | CPT/HCPCS: 99214; 99215 ==

== ENCOUNTER 2021-08-20 10:45 | Outpatient (CLI) | payer MEDICARE, OTHER, SELFPAY ==
--- NOTE | 2021-08-20 11:00 | CT_ITS ---
WS: [id number] CTA HEAD AND NECK TECHNIQUE: Contrast enhanced CTA of the head and neck with coronal and sagittal reformatted images an d maximum intensity projection (MIP) images. NASCET criteria utilized. CLINICAL INFORMATION: I65.23 - Occlusion and stenosis of bilateral carotid josefina... COMPARISON: CTA 2020 DLP: 1290.[address] scans at [facility] use at least one of these dose optimization techniques: automated e xposure control; mA and/or kV adjustment per patient size (includes targeted exams where dose is matc hed to clinical indication); or iterative reconstruction. FINDINGS: RIGHT: Right common carotid artery is patent. Moderate calcified irregular atheromatous disease right carotid bulb extending into the ICA with greater than 70% stenosis. Stenosis measures approximately 70-75% 1.3 cm distal to the bifurcation unchanged from previous. Right ICA remains patent to the skull base. ECA is occluded or nearly occluded at the origin with rec onstitution. This is unchanged in appearance compared to previous. LEFT: Left common carotid artery is patent. Prior left carotid stent is patent. No significant recurr ent stenosis. Left ICA is patent to the skull base. Tortuous left cervical ICA. INTRACRANIAL CTA: Both vertebral arteries are patent. Basilar artery is patent. Normal vascularity to the GROUND SYSTEMS ENGINEER territory bilaterally. Both ICAs are patent at the skull base. Moderate cavernous carotid calcification. Normal vascularity to the WANDA and MCA territories bilaterally. Hypoplastic right A1 segment. No evidence of high-grade p roximal stenosis or aneurysm. Mastoid air cells are well aerated. Paranasal sinuses are well aerated.Chronic encephalomalacia in th e left parietal lobe from prior infarct. This is unchanged in appearance. Normal posterior nasopharyn x. Lung apices are well aerated. Slight anterolisthesis C2 on C3. Mild spondylitic changes cervical spine. CT/CT angio headneck* [id number] IMPRESSION: 1. Right ICA stenosis 1.3 cm from the bifurcation measures 70-75% unchanged fr om previous. 2. Left carotid stent. No significant recurrent stenosis. 3. Both vertebral arteries are patent. 4. Normal intracranial CTA. 5. Chronic infarct left parietal lobe with encephalomalacia unchanged from pre vious.
[2021-08-20] MEDS: iohexol 350 mg/mL 100 mL Btl IV (12:31)
== END 2021-08-20 10:46 | disposition home or self-care (01) ==
PROVIDERS: PCP Family Medicine; Visit Provider Specialist
DX: I65.23 Occlusion and stenosis of bilateral carotid arteries (principal)
CPT/HCPCS: 70496; 70498; 82565; 84520; Q9967

== ENCOUNTER → 2021-09-29 08:26 | Outpatient (BNVA) | payer MEDICARE, OTHER, SELFPAY | PROVIDERS: PCP Family Medicine; Visit Provider Specialist | DX: G40.209 Localization-related (focal) (partial) symptomatic epilepsy and epileptic syndromes with complex partial seizures, not intractable, without status epilepticus (principal); G40.309 Generalized idiopathic epilepsy and epileptic syndromes, not intractable, without status epilepticus; I72.5 Aneurysm of other precerebral arteries; I65.21 Occlusion and stenosis of right carotid artery | CPT/HCPCS: 99214 ==

== ENCOUNTER 2021-11-26 10:50 | Outpatient (CLI) | payer MEDICARE, OTHER, SELFPAY ==
--- NOTE | 2021-11-26 11:00 | USCV_ITS ---
HazelBari Age: 71 Gender: M : 1950 Exam Date: 11/26/2021 11:16 Ordering Phys: Asa Celis MD (Andy) ([email or web address]/[facility] [place]) Technologist: [place] [facility] [place]ication: cca disease HX LT ENDART Risk Factors: Previous Vascular Surgery: Right Brachial BP: / Left Brachial BP: / Right Left Velocity (cm/s) Spectral Plaque Velocity (cm/s) Spectral Plaque Syst/Diast Broadening Syst/Diast Broadening 41.60/ 13.30 Prox CCA 88.10 / 15.70 41.00/ 13.90 Hetro Mid CCA 71.20 / 13.30 Hetro 65.80/ 21.10 Hetro Distal CCA 56.30 / 10.70 Hetro 156.03/28.13 Hetro Prox ICA 82.00 / 17.20 Hetro 131.50/22.90 Hetro Mid ICA 97.20 / 32.40 Hetro 115.90/27.80 Distal ICA 96.20 / 26.30 55.45 ECA 162.40 2.44 ICA/CCA 1.10 Antegrade Vertebral Antegrade 86.90/ 22.90 cm/s 70.90/ 11.10 cm/s Tri Subclavian Tri 117.1 101.2 0 0 FINDINGS Mild to moderate diffuse irregular plaques in the common carotid arteries bilaterally. Mild to moderate plaques at the left bifurcation and ICA Moderate to heavy heterogeneous plaque at the right bifurcation and internal carotid artery Antegrade flow in the vertebral arteries bilaterally. Normal Doppler flow velocities in the external carotid, vertebral and subclavian arteries bilaterally CONCLUSIONS Moderate to heavy heterogeneous plaque at the right bifurcation and internal carotid artery with velocity elevation, suggestive of 50 to 69% stenosis. Mild to moderate plaques at the left bifurcation, suggesting less than 50% stenosis Mild to moderate diffuse irregular plaques in the common carotid arteries bilaterally. Compared to the study from 11/25/2020, there is worsening of the stenosis on the right side Dr Krystina Albrecht MD [facility] (Electronically Signed) Final Date: 27 November 2021 10:13 S
== END 2021-11-26 10:51 | disposition home or self-care (01) ==
LOC: RAD 10:54
PROVIDERS: PCP Family Medicine; Visit Provider Thoracic Surgery (Cardiothoracic Vascular Surgery)
DX: I65.23 Occlusion and stenosis of bilateral carotid arteries (principal)
CPT/HCPCS: 93880

== ENCOUNTER → 2022-03-24 11:37 | Outpatient (BNVA) | payer MEDICARE, OTHER, SELFPAY | PROVIDERS: PCP Family Medicine; Visit Provider Family Medicine | DX: F41.9 Anxiety disorder, unspecified (principal); G47.33 Obstructive sleep apnea (adult) (pediatric); E79.0 Hyperuricemia without signs of inflammatory arthritis and tophaceous disease; I63.9 Cerebral infarction, unspecified; I10 Essential (primary) hypertension; E78.5 Hyperlipidemia, unspecified | CPT/HCPCS: 80053; 80061; 82607; 83036; 84550 ==

== ENCOUNTER 2022-05-29 11:16 | Outpatient (CLI) | payer MEDICARE, OTHER, SELFPAY ==
--- NOTE | 2022-05-29 11:15 | USCV_ITS ---
Bari Oliva Age: 72 Gender: M : 1950 Exam Date: 05/29/2022 11:30 Ordering Phys: Asa Celis MD (Andy) ([email or web address] [place]) Technologist: FAUZIA [place] [facility] [place]: H/O LEFT STENT. EVAL FOR CAROTID STENOSIS Risk Factors: Previous Vascular Surgery: Right Brachial BP: / Left Brachial BP: / Right Left Velocity (cm/s) Spectral Plaque Velocity (cm/s) Spectral Plaque Syst/Diast Broadening Syst/Diast Broadening 97.50/ 7.30 Prox CCA 105.30/ 18.40 49.60/ 13.70 Mid CCA 113.10/ 27.60 42.10/ 13.10 Distal CCA 106.90/ 20.90 128.70/35.20 Prox ICA 63.10 / 17.70 149.00/31.10 Mid ICA 105.80/ 35.30 70.80/ 21.90 Distal ICA 83.50 / 31.70 90.00 ECA 197.90 1.53 ICA/CCA 0.94 Antegrade Vertebral Antegrade 70.90/ 12.00 cm/s 88.90/ 22.20 cm/s Tri Subclavian Tri 155.1 172.5 0 0 FINDINGS Comparison:. 11/26/21 Diffuse bilateral scattered calcified plaque and intimal thickening throughout the common carotid arteries and extending through the bifurcation. Surface of plaque is irregular. Velocity in right ICA is not is increased as on the prior exam. Bilateral antegrade vertebral arteries. CONCLUSIONS Bilateral ICA stenosis less than 50%. Velocity has decreased since the prior exam in the right ICA. Heterogenous plaque, bilateral. Dr. Vashti Proctor DO (Electronically Signed) Final Date: 29 May 2022 13:48 S
== END 2022-05-29 11:17 | disposition home or self-care (01) ==
LOC: RAD 11:18
PROVIDERS: PCP Family Medicine; Visit Provider Thoracic Surgery (Cardiothoracic Vascular Surgery)
DX: I65.23 Occlusion and stenosis of bilateral carotid arteries (principal)
CPT/HCPCS: 93880

== ENCOUNTER → 2022-06-18 12:56 | Outpatient (BNVA) | payer MEDICARE, OTHER, SELFPAY | PROVIDERS: PCP Family Medicine; Visit Provider Internal Medicine | DX: I25.10 Atherosclerotic heart disease of native coronary artery without angina pectoris (principal); I72.5 Aneurysm of other precerebral arteries; I65.23 Occlusion and stenosis of bilateral carotid arteries; G47.33 Obstructive sleep apnea (adult) (pediatric); I10 Essential (primary) hypertension; Z87.891 Personal history of nicotine dependence; Z86.73 Personal history of transient ischemic attack (TIA), and cerebral infarction without residual deficits | CPT/HCPCS: 99214 ==

== ENCOUNTER → 2022-07-02 10:32 | Outpatient (BNVA) | payer MEDICARE, OTHER, SELFPAY | PROVIDERS: PCP Family Medicine; Visit Provider Thoracic Surgery (Cardiothoracic Vascular Surgery) | DX: I65.21 Occlusion and stenosis of right carotid artery (principal); Z87.891 Personal history of nicotine dependence | CPT/HCPCS: 99213 ==

== ENCOUNTER → 2022-09-17 11:09 | Outpatient (BNVA) | payer MEDICARE, OTHER, SELFPAY | PROVIDERS: PCP Family Medicine; Visit Provider Family Medicine | DX: I10 Essential (primary) hypertension (principal); I72.5 Aneurysm of other precerebral arteries; I63.9 Cerebral infarction, unspecified; I73.9 Peripheral vascular disease, unspecified; G47.33 Obstructive sleep apnea (adult) (pediatric); E55.9 Vitamin D deficiency, unspecified | CPT/HCPCS: 80053; 80061; 82306; 85025 ==

== ENCOUNTER → 2022-11-25 10:05 | Outpatient (BNVA) | payer MEDICARE, OTHER, SELFPAY | PROVIDERS: PCP Family Medicine; Visit Provider Specialist | DX: I72.5 Aneurysm of other precerebral arteries (principal); G40.209 Localization-related (focal) (partial) symptomatic epilepsy and epileptic syndromes with complex partial seizures, not intractable, without status epilepticus; I65.23 Occlusion and stenosis of bilateral carotid arteries | CPT/HCPCS: 99214 ==

== ENCOUNTER 2022-12-30 11:48 | Outpatient (CLI) | payer MEDICARE, OTHER, SELFPAY ==
--- NOTE | 2022-12-30 11:45 | MR_ITS ---
WS: [id number] MRA HEAD TECHNIQUE: Axial 3-D TOF images obtained with axial images and axial, sagittal, and coronal 2-D refor matted images. CLINICAL INFORMATION: I65.23 - Occlusion and stenosis of bilateral carotid josefina... 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 This is unchanged in appearance since the prior examination. Distal vertebral arteries are patent. Normal va scularity to the SUPERVISOR [employer]TERATION WORKROOM territory bilaterally. Both ICAs are patent at the skull base. Normal vascularity to the WANDA and MCA territories bilaterally. Patent anterior communicating artery. Hypoplastic right A1 segment. Chronic infarct in the left frontal parietal junction with encephalomal acia and gliosis. This is unchanged in appearance compared to previous. MR/MR angio head wo con [id number] IMPRESSION: 1. 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 Incidental normal variant hypoplastic right A1. 3. Otherwise unremarkable intracranial MRA. 4. No changes from March 02, 2020
== END 2022-12-30 11:49 | disposition home or self-care (01) ==
LOC: RAD 11:54
PROVIDERS: PCP Family Medicine; Visit Provider Specialist
DX: I72.5 Aneurysm of other precerebral arteries (principal); I65.23 Occlusion and stenosis of bilateral carotid arteries; G40.209 Localization-related (focal) (partial) symptomatic epilepsy and epileptic syndromes with complex partial seizures, not intractable, without status epilepticus
CPT/HCPCS: 70544

== ENCOUNTER 2023-01-08 15:06 | Outpatient (CLI) | payer MEDICARE, OTHER, SELFPAY ==
--- NOTE | 2023-01-08 | MR_ITS ---
WS: [id number] MRA CAROTID ARTERIES HISTORY: BILATERAL CAROTID ARTERY STENOSIS, history of LEFT carotid stent. COMPARISON: Carotid ultrasound 05/29/2022. TECHNIQUE: 2-D [id number] imaging. No contrast. MIP and source images are reviewed. Right: . Limited visualization of the cervical carotid arteries. The carotid arteries patent. Left: Limited visualization of the cervical carotid artery. Carotid artery is patent. Vertebral Arteries: Patent. There is a small tiny filling defect in the mid RIGHT vertebral artery wh ich may be a focal plaque. Not completely occluded. MR/MR angio neck wo con [id number] IMPRESSION: 1. Nearly nondiagnostic evaluation of the carotid arteries. No occlusions iden tified. 2. Small filling defect in the mid RIGHT cervical portion of the vertebral art yunier. No occlusion.
== END 2023-01-08 15:07 | disposition home or self-care (01) ==
LOC: RAD 15:14
PROVIDERS: PCP Family Medicine; Visit Provider Specialist
DX: I65.23 Occlusion and stenosis of bilateral carotid arteries (principal)
CPT/HCPCS: 70547

== ENCOUNTER 2023-02-10 12:10 | Emergency (ER) | payer MEDICARE, OTHER, SELFPAY ==
[2023-02-10 12:12] VITALS: BP 201/79; PULSE 59; RESP 16; TEMP 36.4; O2SAT 98; BMI 33.9
--- NOTE | 2023-02-10 12:20 | ECG_ITS ---
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 Measurements Intervals [place] Rate: 54 P: 109 TX: 245 QRS: -25 QRSD: 150 T: 41 QT: 450 QTc: 429 Interpretive Statements SINUS BRADYCARDIA WITH FIRST DEGREE AV BLOCK BORDERLINE LEFT AXIS DEVIATION [QRS AXIS < -20] RIGHT BUNDLE BRANCH BLOCK [120+ ms QRS DURATION, UPRIGHT V1, 40+ ms S IN I/aVL/V4/V5/V6] Compared to ECG 11/15/2020 15:26:44 Sinus rhythm no longer present Left anterior fascicular block no longer present Myocardial infarct finding no longer present Electronically Signed On 02-10-2023 17:46:56 CDT by Charlie Conn M.D. [id number]
[2023-02-10 12:28] VITALS: BP 201/89; O2SAT 98
--- NOTE | 2023-02-10 12:45 | XR_ITS ---
WS: [id number] Portable AP upright chest, 02/10/2023 Clinical Data: dyspnea/cough Comparison: Portable chest, 03/19/2019 Findings: No nodules, masses or effusions are seen. The heart is normal. The pulmonary vascularity is not increased. No pneumonia or pneumothorax is seen. The aortic arch and descending thoracic aorta s how mild tortuosity. There is a retrocardiac scar in the left lower lobe unchanged. The patient is ro tated and there is a slight dextroscoliosis. XR/XR chest 1V portable [id number] Impression: Atherosclerosis.
[2023-02-10] MEDS: meclizine 25 mg tablet PO (13:00)
[2023-02-10] MEDS: sodium chloride 0.9% 500 ML 999 ML IV (13:00)
[2023-02-10 13:07] VITALS: BP 179/89; BP 184/85; BP 193/85; PULSE 55; PULSE 58; PULSE 61
[2023-02-10 13:10] LABS: Basophils % 0.8 %; Eosinophils # 0.1 10^3/uL (0.0-0.8); Eosinophils % 2.5 %; Hematocrit 44.2 % (42.0-52.0); Hemoglobin 14.7 g/dL (11.7-16.6); Lymphocytes # 0.7 10^3/uL (0.8-4.8); Lymphocytes % 13.9 %; Mean Corpuscular HGB Conc 33.3 g/dL (30.0-36.0); Mean Corpuscular Hemoglobin 30.7 pg (28.0-34.0); Mean Corpuscular Volume 92.3 fl (80-94); Mean Platelet Volume 9.9 fL (7.4-10.4); Monocytes # 0.5 10^3/uL (0.2-0.9); Monocytes % 9.1 %; Neutrophils # 3.87 10^3/uL (1.8-7.7); Neutrophils % 73.7 %; Nucleated Red Blood Cells % 0 %; Platelet Count 193 10^3/cmm (130-400); Red Blood Count 4.79 10^6/uL (4.1-5.3); Red Cell Distribution Width 12.7 % (12.1-15.1); White Blood Count 5.3 10^3/uL (4.0-10.0)
--- NOTE | 2023-02-10 13:26 | CT_ITS ---
WS: [id number] CT HEAD NONCONTRAST HISTORY: dizziness, htn TECHNIQUE: Contiguous axial imaging performed through the brain in 2.5 mm imaging. Bone and soft tiss ue windows. Sagittal and coronal reformats reviewed. All CT scans at [facility] use at least one of these dose optimization techniques: automated exposure control; mA and/or kV adjustment per pa tient size (includes targeted exams where dose is matched to clinical indication); or iterative recon struction. DLP: 1359.29 mGy.cm COMPARISON: 11/15/2020 No acute intracranial hemorrhage, midline shift or mass effect. Encephalomalacia LEFT frontal parietal region from a remote large territory infarct. No new infarcts are identified. Ventricles: Normal size with no hydrocephalus. No inferior displacement of cerebellar tonsils. Paranasal sinuses: As visualized are clear. Mastoid air cells: Well pneumatized. Calvarium and scalp: Skull is intact with no soft tissue edema or swelling. Mild intracranial carotid calcifications. CT/CT head wo con* [id number] IMPRESSION: 1. No acute intracranial hemorrhage or edema. 2. Large remote infarct involving the posterior LEFT frontal parietal region w ith encephalomalacia.
--- NOTE | 2023-02-10 13:26 | ED_ITS ---
HPI - Dizziness General: Chief Complaint: Dizziness Stated Complaint: DIZZY/ HEADACHE Time Seen by Provider: 02/10/23 12:41 Source: patient Mode of arrival: ambulatory History of Present Illness: HPI Narrative: 73-year-old male presents emergency room with complaints of dizziness that is worse when he moves in certain directions when he lays very still he does not have the dizziness. He does get true vertiginous-like symptoms began with a headache this morning around 11. Blood pressure was elevated when he went to the fire department and then he was referred here. His blood pressure on arrival initially was 201/89 for department and reported to 160s over 112. He did improve after he was here for a time he was given medications see orders. He is not having any chest pain. He has not had any nausea or gait disturbance. MD elicited complaint: dizziness and lightheadedness Onset (ago): hour(s) Timing: gradual onset Severity: moderate Description: room spinning and lightheadedness Context: change in body position History of similar symptoms: Yes Exacerbating factors: change in body position Relieving factors: remaining still Associated symptoms: Reports headache(s); Denies change in hearing, chest pain, chills, cough, diaphoresis, ear discharge, ear pressure, fevers/chills, malaise, nausea, nasal congestion, palpitations, rash, short of breath, syncope, tinnitus, vomiting or weakness Associated neuro symptoms: Deny confusion, difficulty speaking, dysphagia, diplopia, extremity weakness, facial numbness, facial weakness, gait changes, numbness in extremities or visual changes Review of Systems Const: Denies: chills, malaise or diaphoresis ENMT: Denies: ear discharge, change in hearing, tinnitus or nasal congestion Card: Denies: chest pain, palpitations or syncope Resp: Denies: dyspnea, productive cough or non-productive cough GI: Denies: nausea, vomiting or dysphagia : Denies: flank pain, dysuria, urinary frequency or urinary urgency Skin/Breast: Denies: rash or pruritus Neuro: Reports: headache(s); Denies: numbness in extremities or confusion [facility] ED PFSH: Medical History (Updated 02/10/23 @ 16:43 by Chai Bowens DO) Carotid stenosis, bilateral CVA (cerebral vascular accident) History of common carotid artery stent placement FLOWER (obstructive sleep apnea) PVD (peripheral vascular disease) Family History Mother Cancer LUNG Grandmother Stroke MATERNAL Social History Smoking and tobacco status: former smoker Alcohol intake: never Substance/Drug Use: never Marital status: Physical Exam Const: GENERAL APPEARANCE: cooperative and comfortable ORIENTATION/CONSCIOUSNESS: Yes awake, Yes oriented to person, Yes oriented to place and Yes oriented to time HENMT: COMMON NORMALS: normocephalic, atraumatic and hearing grossly normal bilaterally HEAD & SCALP: normocephalic and atraumatic Resp: COMMON NORMALS: normal respiratory effort, No retractions, No use of accessory muscles and clear to auscultation bilaterally AUSCULTATION: clear to auscultation bilaterally Cardio: COMMON NORMALS: regular rate, regular rhythm and No murmurs present (Cardio) RATE: regular rate RHYTHM: regular rhythm GI: COMMON NORMALS: Soft to palpation and No hepatosplenomegaly present AUSCULTATION: Yes normoactive bowel sounds PALPATION: Yes Soft to palpation, No Tenderness to palpation present (GI), No Guarding due to palpation present (GI) and Yes No hepatosplenomegaly present Extremity: COMMON NORMALS: normal to inspection, capillary refill normal, no clubbing, cyanosis or edema, no calf tenderness and no pedal edema Neuro: SENSORIUM/ORIENTATION: Yes oriented to person, Yes oriented to place and Yes oriented to time Skin: COMMON NORMALS: no rashes or lesions noted GENERAL SKIN EXAM: no rashes or lesions noted Course Vital Signs: Vital signs: Vital Signs Temperature 97.6 F 02/10/23 12:12 Pulse Rate 55 L 02/10/23 13:07 Respiratory Rate 16 02/10/23 12:12 Blood Pressure 150/81 02/10/23 15:12 Pulse Oximetry 97 02/10/23 14:11 Oxygen Delivery Me thod Room Air 02/10/23 14:11 MDM - Dizziness Medical Decision Making Symptoms improved after blood pressure controlled and given meclizine. He is not able to reproduce his symptoms to any extent at this point. He ambulated without difficulty gait is normal. Repeat neurologic exam no focal logic deficit there is no sign of acute neurologic deficit. Discharge home with meclizine monitor blood pressure closely at home keep blood pressure log and follow-up with primary care doctor within the week. Medical Records I reviewed the patient's medical records. Lab Data I reviewed the patient's lab results. 02/10/23 12:20 02/10/23 12:20 Radiology Impressions Chest X-Ray 02/10/23 12:45 Impression: Atherosclerosis. Head CT 02/10/23 13:26 IMPRESSION: 1. No acute intracranial hemorrhage or edema. 2. Large remote infarct involving the posterior LEFT frontal parietal region with encephalomalacia. Laboratory Results WBC 5.3 10^3/uL (4.0-10.0) 02/10/23 12:20 RBC 4.79 10^6/uL (4.1-5.3) 02/10/23 12:20 Hgb 14.7 g/dL (11.7-16.6) 02/10/23 12:20 Hct 44.2 % (42.0-52.0) 02/10/23 12:20 MCV 92.3 fl (80-94) 02/10/23 12:20 MCH 30.7 pg (28.0-34.0) 02/10/23 12:20 MCHC 33.3 g/dL (30.0-36.0) 02/10/23 12:20 RDW 12.7 % (12.1-15.1) 02/10/23 12:20 Plt Count 193 10^3/cmm (130-400) 02/10/23 12:20 MPV 9.9 fL (7.4-10.4) 02/10/23 12:20 Neut % (Auto) 73.7 % 02/10/23 12:20 Lymph % (Auto) 13.9 % 02/10/23 12:20 Reagan % (Auto) 9.1 % 02/10/23 12:20 Eos % (Auto) 2.5 % 02/10/23 12:20 Baso % (Auto) 0.8 % 02/10/23 12:20 Neut # (Auto) 3.87 10^3/uL (1.8-7.7) 02/10/23 12:20 Lymph # (Auto) 0.7 10^3/uL (0.8-4.8) L 02/10/23 12:20 Reagan # (Auto) 0.5 10^3/uL (0.2-0.9) 02/10/23 12:20 Eos # (Auto) 0.1 10^3/uL (0.0-0.8) 02/10/23 12:20 Baso # (Auto) 0.0 10^3/uL (0.0-0.1) 02/10/23 12:20 Nucleated RBC % (auto) 0 % 02/10/23 12:20 Nucleated RBCs # 0.0 /100WBC 02/10/23 12:20 Sodium 136 mmol/L (136-145) 02/10/23 12:20 Potassium 3.7 mmol/L (3.5-5.1) 02/10/23 12:20 Chloride 100 mmol/L (98-107) 02/10/23 12:20 Carbon Dioxide 25 mmol/L (22-29) 02/10/23 12:20 Anion Gap 14.7 (5-19) 02/10/23 12:20 BUN 11 mg/dL (8-23) 02/10/23 12:20 Creatinine 0.8 mg/dL (0.7-1.2) 02/10/23 12:20 GFR Calculation Not Reportable 02/10/23 12:20 Glucose 134 mg/dL (65-115) H 02/10/23 12:20 Calculated Osmolality 283 mOsm/kg (285-295) L 02/10/23 12:20 Calcium 8.6 mg/dL (8.5-10.5) 02/10/23 12:20 Total Bilirubin 0.5 mg/dL (0.15-1.2) 02/10/23 12:20 AST 24 U/L (0-40) 02/10/23 12:20 ALT 22 U/L (0-41) 02/10/23 12:20 Alkaline Phosphatase 110 U/L (40-130) 02/10/23 12:20 Total Protein 6.5 g/dL (6.6-8.7) L 02/10/23 12:20 Albumin 4.0 g/dL (3.5-5.2) 02/10/23 12:20 Globulin 2.5 g/dL (1.3-4.6) 02/10/23 12:20 Urine Color Yellow (Yellow) 02/10/23 15:10 Urine Appearance Clear (CLEAR) 02/10/23 15:10 Urine pH 7 (5-7) 02/10/23 15:10 Ur Specific Blakely 1.010 (1.005-1.030) 02/10/23 15:10 Urine Protein Neg (Negative) 02/10/23 15:10 Urine Glucose (UA) Norm (Normal) 02/10/23 15:10 Urine Ketones Negative (Negative) 02/10/23 15:10 Urine Blood Neg (Negative) 02/10/23 15:10 Urine Nitrate Negative (Negative) 02/10/23 15:10 Urine Bilirubin Neg (Negative) 02/10/23 15:10 Prot Sulfosalicylic Acd Cancelled 02/10/23 12:20 Urine Urobilinogen Neg mg/dL (Negative) 02/10/23 15:10 Ur Leukocyte Esterase Negative (Negative) 02/10/23 15:10 Discharge Plan Discharge Patient Disposition: Home Clinical Impression: Acute labyrinthitis, Benign essential HTN Condition: Stable Prescriptions: No Action ergocalciferol (vitamin D2) [Vitamin D2] 1,250 mcg (50,000 unit) capsule 50,000 unit PO Q7D Qty: 52 0RF Rx Instructions: ON SUNDAYS losartan 25 mg tablet 25 mg PO DAILY@09 Qty: 90 3RF lorazepam 0.5 mg tablet 0.5 mg PO BID PRN (Reason: anxiety) Qty: 60 5RF atorvastatin 20 mg tablet 40 mg PO DAILY@21 Qty: 180 3RF clopidogrel 75 mg tablet 75 mg PO DAILY@09 Qty: 90 3RF omeprazole 20 mg capsule,delayed release(DR/EC) 20 mg PO BID PRN (Reason: Heartburn) Qty: 180 3RF allopurinol 100 mg tablet See Rx Instructions .ROUTE .COMPLEX Qty: 180 0RF Dose Instruction: TAKE 2 TABLETS BY MOUTH ONCE DAILY FOR URIC ACID Rx Instructions: TAKE 2 TABLETS BY MOUTH ONCE DAILY FOR URIC ACID escitalopram oxalate 10 mg tablet See Rx Instructions .ROUTE .COMPLEX Qty: 30 5RF Dose Instruction: TAKE 1 TABLET BY MOUTH ONCE DAILY FOR ANXIETY Rx Instructions: TAKE 1 TABLET BY MOUTH ONCE DAILY FOR ANXIETY epinephrine [EpiPen] 0.3 mg/0.3 mL auto-injector 0.3 mg IM Q10M PRN (Reason: anaphylaxis) Qty: 1 0RF Rx Instructions: for 2 doses aspirin 325 mg tablet,delayed release (DR/EC) 325 mg PO DAILY@09 metoprolol succinate 25 mg Tablet Extended Release 24 Hr 12.5 mg PO DAILY lamotrigine 200 mg tablet 200 mg PO BID Discharge Orders: Discharge ED (Routine); Ordered 02/10/23 Ordered By: Chai Bowens Referrals: Valentin Valiente, DO [Primary Care Provider] - Discharge Diet: Usual diet Discharge Activity: Resume usual activity Patient Instructions: Labyrinthitis (ED), Opioid Safety, Pain Management Activity Restrictions/Additional Instructions: You were seen today with elevated blood pressure. You were given some medication to your blood pressure did improve. Recommend following your blood pressure at home regularly and reevaluate with your doctor within the next week. There were no signs of stroke on your exam your symptoms seem to be more labyrinthitis. If you have recurrence of problems you can return to the emergency room. Coding Level of Care Code ED Advice Clerk for Bre Caldwell NIH stroke score NIHSS Level Of Consciousness - 1a: 0 Level Of Consciousness Questions - 1b: Both Correct Level Of Consciousness Commands - 1c: Both Correct Best Gaze - 2: Normal Visual Moralez - 3: No Visual Loss Facial Palsy - 4: Normal Motor Arm Right - 5: No Drift Motor Arm Left - 5: No Drift Motor Leg Right - 6: No Drift Motor Leg Left - 6: No Drift Limb Ataxia - 7: Absent Sensory - 8: Normal Best Language - 9: No Aphasia Dysarthia - 10: Normal Extinction And Inattention - 11: 0 Score Total Score: 0
[2023-02-10 13:30] LABS: Alanine Aminotransferase 22 U/L (0-41); Alkaline Phosphatase 110 U/L (40-130); Anion Gap 14.7 (5-19); Aspartate Amino Transferase 24 U/L (0-40); Blood Urea Nitrogen 11 mg/dL (8-23); Calcium 8.6 mg/dL (8.5-10.5); Carbon Dioxide 25 mmol/L (22-29); Chloride 100 mmol/L (98-107); Globulin 2.5 g/dL (1.3-4.6); Glucose 134 mg/dL (65-115); Osmolality Calculated 283 mOsm/kg (285-295); Potassium 3.7 mmol/L (3.5-5.1); Sodium 136 mmol/L (136-145); Total Bilirubin 0.5 mg/dL (0.15-1.2); Total Protein 6.5 g/dL (6.6-8.7)
[2023-02-10] MEDS: amlodipine 5 mg Tablet PO (13:33)
[2023-02-10] MEDS: metoprolol tartrate 25 mg Tablet 12.5 MG PO (13:33)
[2023-02-10 14:11] VITALS: O2SAT 97
[2023-02-10 15:12] VITALS: BP 150/81
[2023-02-10 15:29] LABS: Add Urine Microscopic? NO; Charge for UA Resulting for Rev
[2023-02-10 15:38] LABS: Urine Appearance Clear (CLEAR); Urine Color Yellow (Yellow); pH Urine 7 (5-7)
[2023-02-10 15:39] LABS: Bilirubin Urine Neg (Negative); Blood Urine Neg (Negative); Glucose Urine UA Norm (Normal); Ketones Urine Negative (Negative); Leukocyte Esterase Urine Negative (Negative); Nitrate Urine Negative (Negative); Protein Urine Neg (Negative); Urobilinogen Urine Neg (Negative)
== END 2023-02-10 17:13 | disposition home or self-care (01) ==
PROVIDERS: Emergency Provider Family Medicine; PCP Family Medicine
DX: H83.09 Labyrinthitis, unspecified ear (principal); I10 Essential (primary) hypertension; Z87.891 Personal history of nicotine dependence
CPT/HCPCS: 36415; 70450; 71045; 80053; 81003; 85025; 93005; 96360; 99285; J7040; J8597

== ENCOUNTER → 2023-03-11 10:37 | Outpatient (BNVA) | payer MEDICARE, OTHER, SELFPAY | PROVIDERS: PCP Family Medicine; Visit Provider Family Medicine | DX: I10 Essential (primary) hypertension (principal); I72.5 Aneurysm of other precerebral arteries; I63.9 Cerebral infarction, unspecified; G47.33 Obstructive sleep apnea (adult) (pediatric); Z13.6 Encounter for screening for cardiovascular disorders; E03.9 Hypothyroidism, unspecified; K21.9 Gastro-esophageal reflux disease without esophagitis; E55.9 Vitamin D deficiency, unspecified | CPT/HCPCS: 80053; 80061; 82607; 82652; 84443 ==

== ENCOUNTER 2023-05-21 10:37 | Outpatient (CLI) | payer MEDICARE, OTHER, SELFPAY ==
--- NOTE | 2023-05-21 10:45 | USCV_ITS ---
HazelBari Age: 73 Gender: M : 1950 Exam Date: 05/21/2023 10:54 Ordering Phys: Asa Celis MD (Andy) ([email or web address]/[facility] [place]) Technologist: Boo Ashby Exam Location: [facility] [place] Indication: bilat carotid stenosis Risk Factors: Previous Vascular Surgery: Right Brachial BP: / Left Brachial BP: / Right Left Velocity (cm/s) Spectral Plaque Velocity (cm/s) Spectral Plaque Syst/Diast Broadening Syst/Diast Broadening 69.00/ 19.70 Prox CCA 68.70 / 11.90 38.10/ 8.50 Mid CCA 81.60 / 19.40 44.30/ 9.30 Distal CCA 101.00/ 24.10 146.60/41.90 Prox ICA 45.90 / 7.50 113.60/17.60 Mid ICA 92.40 / 29.50 74.30/ 20.40 Distal ICA 56.70 / 14.00 47.40 ECA 132.80 2.98 ICA/CCA 1.13 Antegrade Vertebral Antegrade 66.40/ 11.80 cm/s 93.20/ 24.90 cm/s Tri Subclavian Tri 76.10 97.90 FINDINGS comp 06/18 CONCLUSIONS Right ICA stenosis 50-69%. Moderate atheromatous plaque right carotid bulb/ICA. Right ICA velocity slightly progressed since 2021. Left ICA stenosis <50%. Mild atheromatous plaque left carotid bulb/ICA. Stent is patent. Intimal thickening in the common carotid arteries and internal carotid arteries bilaterally. Normal antegrade Doppler flow noted in the right vertebral artery. Normal antegrade Doppler flow noted in the left vertebral artery. Huy Jauregui MD (Electronically Signed) Final Date: 21 May 2023 16:13 S
== END 2023-05-21 10:38 | disposition home or self-care (01) ==
PROVIDERS: PCP Family Medicine; Visit Provider Thoracic Surgery (Cardiothoracic Vascular Surgery)
DX: I65.21 Occlusion and stenosis of right carotid artery (principal)
CPT/HCPCS: 93880

== ENCOUNTER → 2023-08-24 10:06 | Outpatient (BNVA) | payer MEDICARE, OTHER, SELFPAY | PROVIDERS: PCP Family Medicine; Visit Provider Family Medicine | DX: I65.21 Occlusion and stenosis of right carotid artery (principal); I10 Essential (primary) hypertension; M10.9 Gout, unspecified; K21.9 Gastro-esophageal reflux disease without esophagitis; I63.9 Cerebral infarction, unspecified; Z13.6 Encounter for screening for cardiovascular disorders; R73.9 Hyperglycemia, unspecified; M19.90 Unspecified osteoarthritis, unspecified site | CPT/HCPCS: 80053; 80061; 83036; 84550; 85025 ==

== ENCOUNTER 2023-10-05 10:13 | Outpatient (CLI) | payer MEDICARE, OTHER, SELFPAY ==
--- NOTE | 2023-10-05 10:30 | USCV_ITS ---
HazelBari hernandez Age: 73 Gender: M : 1950 Exam Date: 10/05/2023 10:20 Ordering Phys: Asa Celis MD (Andy) ([email or web address]/[facility] [place]) Technologist: CT Exam Location: [facility] [place] Indication: stenosis Risk Factors: Previous Vascular Surgery: Right Brachial BP: / Left Brachial BP: / Right Left Velocity (cm/s) Spectral Plaque Velocity (cm/s) Spectral Plaque Syst/Diast Broadening Syst/Diast Broadening 58.30/ 11.70 Prox CCA 74.70 / 15.40 44.80/ 10.70 Mid CCA 89.60 / 17.50 40.40/ 12.00 Distal CCA 83.00 / 16.40 64.50/ 17.10 Prox ICA 63.90 / 10.60 123.20/29.20 Mid ICA 67.10 / 21.80 125.30/19.80 Distal ICA 74.80 / 21.80 63.70 ECA 125.60 2.15 ICA/CCA 0.84 Antegrade Vertebral Antegrade 49.70/ 11.60 cm/s 53.80/ 12.50 cm/s Tri Subclavian Tri 83.20 105.5 0 CONCLUSIONS Right ICA stenosis <50%. Moderate atheromatous plaque right carotid bulb/ICA. Left ICA stenosis <50%. Moderate atheromatous plaque left carotid bulb/ICA. Stent is patent Normal antegrade Doppler flow noted in the right vertebral artery. Normal antegrade Doppler flow noted in the left vertebral artery. Huy Jauregui MD (Electronically Signed) Final Date: 05 October 2023 13:16 S
== END 2023-10-05 10:14 | disposition home or self-care (01) ==
LOC: RAD 10:14
PROVIDERS: PCP Family Medicine; Visit Provider Thoracic Surgery (Cardiothoracic Vascular Surgery)
DX: I65.23 Occlusion and stenosis of bilateral carotid arteries (principal)
CPT/HCPCS: 93880

== ENCOUNTER → 2023-10-26 14:01 | Outpatient (BNVA) | payer MEDICARE, OTHER, SELFPAY | PROVIDERS: PCP Family Medicine; Visit Provider Thoracic Surgery (Cardiothoracic Vascular Surgery) | DX: I65.23 Occlusion and stenosis of bilateral carotid arteries (principal); Z87.891 Personal history of nicotine dependence | CPT/HCPCS: 99213 ==

== ENCOUNTER → 2023-11-30 10:21 | Outpatient (BNVA) | payer MEDICARE, OTHER, SELFPAY | PROVIDERS: PCP Family Medicine; Referring Provider Specialist; Visit Provider Specialist | DX: I72.5 Aneurysm of other precerebral arteries (principal); G40.209 Localization-related (focal) (partial) symptomatic epilepsy and epileptic syndromes with complex partial seizures, not intractable, without status epilepticus; I65.23 Occlusion and stenosis of bilateral carotid arteries | CPT/HCPCS: 99213 ==

== ENCOUNTER → 2024-02-08 09:24 | Outpatient (BNVA) | payer MEDICARE, OTHER, SELFPAY | PROVIDERS: PCP Family Medicine; Visit Provider Family Medicine | DX: I10 Essential (primary) hypertension (principal); Z98.890 Other specified postprocedural states; Z95.828 Presence of other vascular implants and grafts; I73.9 Peripheral vascular disease, unspecified; I65.21 Occlusion and stenosis of right carotid artery; I63.9 Cerebral infarction, unspecified; G47.33 Obstructive sleep apnea (adult) (pediatric); M19.90 Unspecified osteoarthritis, unspecified site; Z13.6 Encounter for screening for cardiovascular disorders; E55.9 Vitamin D deficiency, unspecified | CPT/HCPCS: 80053; 80061; 82652; 83036; 84550; 85025 ==

== ENCOUNTER 2024-03-27 11:11 | Outpatient (CLI) | payer MEDICARE, OTHER, SELFPAY ==
--- NOTE | 2024-03-27 11:15 | USCV_ITS ---
Abdominal Doppler HazelBari Age: 74 Gender: M : 1950 Exam Date: 03/27/2024 11:19 Ordering Phys: Asa Celis MD (Andy) [email or web address] [place]ologist: CT Exam Location: [facility] [place] Indication: stenosis Risk Factors: Previous Vascular Surgery: Right Brachial BP: / Left Brachial BP: / Right Left Velocity (cm/s) Spectral Plaque Velocity (cm/s) Spectral Plaque Syst/Diast Broadening Syst/Diast Broadening 45.90/ 9.30 Prox CCA 116.50/ 26.50 45.50/ 11.10 Mid CCA 94.60 / 24.10 39.90/ 8.70 Distal CCA 81.30 / 17.50 147.50/27.00 Prox ICA 32.90 / 9.50 88.50/ 23.70 Mid ICA 64.90 / 21.10 62.50/ 12.00 Distal ICA 78.00 / 26.60 69.00 ECA 98.80 3.70 ICA/CCA 1.00 Antegrade Vertebral Antegrade 45.60/ 8.10 cm/s 41.40/ 10.30 cm/s Tri Subclavian Tri 157.6 130.1 0 0 FINDINGS Comparison:. 10/05/23 Continued elevation of velocity right ICA. Extensive diffuse plaque throughout the carotid arteries. Surface of the plaque is irregular in some areas. Antegrade vertebral arteries. CONCLUSIONS Progression of stenosis right ICA. Extensive plaque diffuse but more focal in the right ICA. Suggest CTA carotid arteries to ensure the stenosis is not greater than visualized by US. Recent MR carotids was technically limited. Right ICA stenosis 50-69%. Left ICA stenosis < 50%. Dr. Vashti Protcor DO (Electronically Signed) Final Date: 27 March 2024 16:41 S
== END 2024-03-27 11:12 | disposition home or self-care (01) ==
LOC: RAD 11:11
PROVIDERS: PCP Family Medicine; Visit Provider Thoracic Surgery (Cardiothoracic Vascular Surgery)
DX: I65.23 Occlusion and stenosis of bilateral carotid arteries (principal)
CPT/HCPCS: 93880

== ENCOUNTER → 2024-04-11 13:45 | Outpatient (BNVA) | payer MEDICARE, OTHER, SELFPAY | PROVIDERS: PCP Family Medicine; Visit Provider Internal Medicine Cardiovascular Disease | DX: I65.23 Occlusion and stenosis of bilateral carotid arteries (principal); Z98.890 Other specified postprocedural states; Z95.828 Presence of other vascular implants and grafts; I10 Essential (primary) hypertension; K21.9 Gastro-esophageal reflux disease without esophagitis; Z86.73 Personal history of transient ischemic attack (TIA), and cerebral infarction without residual deficits | CPT/HCPCS: 99213 ==

== ENCOUNTER → 2024-07-25 13:55 | Outpatient (BNVA) | payer MEDICARE, OTHER, SELFPAY | PROVIDERS: PCP Family Medicine; Visit Provider Family Medicine | DX: I10 Essential (primary) hypertension (principal); I73.9 Peripheral vascular disease, unspecified; I63.9 Cerebral infarction, unspecified; R73.9 Hyperglycemia, unspecified; G47.33 Obstructive sleep apnea (adult) (pediatric); I72.5 Aneurysm of other precerebral arteries; M19.90 Unspecified osteoarthritis, unspecified site | CPT/HCPCS: 80053; 80061; 83036; 84550 ==

== ENCOUNTER 2024-09-07 13:11 | Emergency (ER) | payer MEDICARE, OTHER, SELFPAY ==
--- NOTE | 2024-09-07 13:19 | CT_ITS ---
WS: [id number] CT CERVICAL SPINE HISTORY: trauma/fall TECHNIQUE: Contiguous 2.0 mm axial imaging performed through the entire cervical spine. Sagittal and coronal reformats also performed. All CT scans at [facility] use at least one of these dose o ptimization techniques: automated exposure control; mA and/or kV adjustment per patient size (include s targeted exams where dose is matched to clinical indication); or iterative reconstruction. DLP: 1416.15 mGy.cm COMPARISON: None available. 2 mm anterolisthesis of C2 and C3. Advanced degenerative disc disease from C3-4 through C6-7. No acut e fractures. Facet joint alignment is normal. Bilateral facet joint arthropathy is most significant a t C3-4. Lateral masses of C1 and C2 are aligned. The odontoid is intact. C2-C3: Bilateral facet joint arthropathy, no stenosis. C3-C4: Osteophytic ridging and facet arthritis. Mild foraminal stenosis. C4-C5: Osteophytic ridging and facet arthritis. Mild LEFT foraminal stenosis. C5-C6: Osteophytic ridging with bilateral facet arthritis. Mild foraminal stenosis. C6-C7: Mild osteophytic ridging. C7-T1: Normal. Heavy calcifications in the cervical carotid arteries. CT/CT cervical spin wo con* [id number] IMPRESSION: 1. No acute cervical spine fracture. 2. Advanced degenerative disc disease and cervical spondylosis. No high-grade central stenosis. 3. Bilateral foraminal stenosis as above.
--- NOTE | 2024-09-07 13:19 | CT_ITS ---
WS: [id number] CT HEAD NONCONTRAST HISTORY: trauma/fall TECHNIQUE: Contiguous axial imaging performed through the brain. Bone and soft tissue windows. Sagitt al and coronal reformats reviewed. All CT scans at [facility] use at least one of these dose optimization techniques: automated exposure control; mA and/or kV adjustment per patient size (includ es targeted exams where dose is matched to clinical indication); or iterative reconstruction. DLP: 1416.15 mGy.cm COMPARISON: 02/10/2023 No acute intracranial hemorrhage, midline shift or mass effect. Prior encephalomalacia involving the LEFT frontoparietal region. No new infarct. No hemorrhage. Ventricles: Normal size with no hydrocephalus. No inferior displacement of the cerebellar tonsils. Paranasal sinuses: As visualized are clear. Mastoid air cells: Well pneumatized. Calvarium and scalp: No skull fracture. Moderate RIGHT frontal scalp hematoma. New high density scalp lesion along the RIGHT lateral calvarium probably associated with the recent t rauma also. CT/CT head wo con* [id number] IMPRESSION: 1. No acute intracranial hemorrhage or edema. 2. Remote LEFT frontal parietal encephalomalacia from a prior infarct. 3. Moderate sized, acute RIGHT frontal scalp hematoma. Additional RIGHT tempor al scalp lesion. Probably related to the recent trauma also. New since the prio r exam.
[2024-09-07 13:20] VITALS: BP 175/99; PULSE 60; TEMP 36.5; O2SAT 96; BMI 34.2
--- NOTE | 2024-09-07 15:58 | ED_ITS ---
HPI - Head Injury 2 General: Chief complaint: Head Injury Stated complaint: fall head lac Time Seen by Provider: 09/07/24 13:19 Source: patient and family Mode of arrival: ambulatory Limitations: no limitations History of Present Illness: Patient is a nice 74-year-old male presents to ED today along with family for evaluation of a head injury. Patient states he was staying in a hotel room and it was pitch black . Patient states he went to roll over and accidentally rolled out of bed and struck his head. He is on anticoagulation. He denies loss of consciousness. He does not complain of a headache currently upon arrival. He does have abrasion to his right frontal region as well as some dried blood to his right parietal region. He has no neck pain or back pain. Denies any other injury sustained during the fall. MD Complaint: head injury Onset (ago): hour(s) Mechanism of Injury: fall Place: other (hotel) Loss of Consciousness: no Location of injury: frontal and parietal Radiation: none Other Injuries: none Associated symptoms: Reports no associated symptoms; Deny confusion, nausea, neck pain, syncope or vomiting Related Data Home Medications Medication Instructions Recorded Confirmed aspirin 325 mg tablet,delayed 325 mg PO DAILY@09 03/04/20 09/07/24 release omeprazole magnesium 20 mg 20 mg PO DAILY PRN REflux 04/11/24 09/07/24 tablet,delayed release (Prilosec OTC) allopurinol 100 mg tablet 200 mg PO DAILY 09/07/24 09/07/24 escitalopram oxalate 10 mg tablet 10 mg PO DAILY 09/07/24 09/07/24 metoprolol succinate 25 mg 12.5 mg PO DAILY 09/07/24 09/07/24 tablet,extended release 24 hr Previous Rx's Medication Instructions Recorded epinephrine 0.3 mg/0.3 mL 0.3 mg (0.3 mL) IM Q10M PRN 03/04/20 injection, auto-injector (EpiPen) anaphylaxis #1 ea atorvastatin 20 mg tablet 40 mg (2 x 20 mg) PO DAILY@21 #180 01/24/24 tabs clopidogrel 75 mg tablet 75 mg PO DAILY@09 #90 tabs 01/24/24 lamotrigine 200 mg tablet 200 mg PO BID #180 tabs 01/24/24 lorazepam 0.5 mg tablet 0.5 mg PO BID PRN anxiety #60 tabs 04/07/24 losartan 25 mg tablet 12.5 mg (1/2 x 25 mg) PO DAILY@09 04/17/24 bp #90 tabs ergocalciferol (vitamin D2) 1,250 See Rx Instructions .Route 08/07/24 mcg (50,000 unit) capsule .COMPLEX #12 caps Allergies Allergy/AdvReac Type Severity Reaction Status Date / Time Penicillins Allergy Unknown Unknown Verified 09/07/24 13:28 Review of Systems 2 Eyes: Denies: change in vision, blurry vision, photophobia, floaters or seeing flashes Card: Denies: palpitations, lightheadedness, syncope or pre-syncope GI: Denies: nausea or vomiting Musc: Denies: neck pain Neuro: Denies: headache(s), numbness in extremities, weakness in extremities, sensory changes, difficulty walking, dizziness, confusion, behavioral changes or Slurred speech present PFSH ED 2 PFSH: Medical History Gout Carotid stenosis, bilateral CVA (cerebral vascular accident) PVD (peripheral vascular disease) History of common carotid artery stent placement FLOWER (obstructive sleep apnea) Family History Mother Cancer LUNG Grandmother Stroke MATERNAL Social History Smoking and tobacco/nicotine status: unknown if used tobacco/nicotine Alcohol intake: never Substance/Drug Use: never Marital status: Physical Exam 2 Const: COMMON NORMALS: no acute distress, average body habitus, patient oriented x3, no limitations, healthy appearing, alert and well nourished G ENERAL APPEARANCE: cooperative HENMT: COMMON NORMALS: normocephalic HEAD & SCALP: normocephalic HEAD IMAGES: 1. abrasion 2. scalp laceration approx 4cm FACE & SINUS: normal facial exam Eye: COMMON NORMALS: Equal, round and reactive pupils present and EOMs intact bilaterally GENERAL EYE: appearance normal, both eyes and all related structures and normal light reflex PUPIL: Yes Equal, round and reactive pupils present DIRECT OPHTHALMOSCOPY: Yes normal light reflex Neck/C-Spine: COMMON NORMALS: full ROM GENERAL: Yes normal visual inspection CERVICAL SPINE: Yes cervical ROM normal, No pain with cervical ROM, No Cervical spine tenderness and No step off deformity Neuro: COMMON NORMALS: patient oriented x3 SENSORIUM/ORIENTATION: Yes alert Procedures Laceration Laceration 1: Site: scalp Side (If applicable): right Size (cm): 4.0 Description: linear Depth: simple, single layer Local Anesthetic: lidocaine 1% Amount of anesthesia used (mL): 2.0 Pre-repair: wound explored and irrigated extensively Skin layer closed with: other (simone) Size (cm): other (simone) Number of sutures: 10 Course 2 Vital Signs: Vital signs: Vital Signs Temperature 97.7 F 09/07/24 13:20 Pulse Rate 60 09/07/24 13:20 Blood Pressure 175/99 09/07/24 13:20 Pulse Oximetry 96 09/07/24 13:20 Oxygen Delivery Me thod Room Air 09/07/24 13:20 MDM - Head Injury Medcial Decision Making CT head and cervical spine showing no acute injuries. Scalp laceration was copiously irrigated and repaired as documented. Wound care/infection precautions discussed. Lab Data Radiology Impressions Cervical Spine CT 09/07/24 13:19 IMPRESSION: 1. No acute cervical spine fracture. 2. Advanced degenerative disc disease and cervical spondylosis. No high-grade central stenosis. 3. Bilateral foraminal stenosis as above. Head CT 09/07/24 13:19 IMPRESSION: 1. No acute intracranial hemorrhage or edema. 2. Remote LEFT frontal parietal encephalomalacia from a prior infarct. 3. Moderate sized, acute RIGHT frontal scalp hematoma. Additional RIGHT temporal scalp lesion. Probably related to the recent trauma also. New since the prior exam. All radiology interpretation(s) finalized by discharge Discharge Plan Discharge Patient Disposition: Home Clinical Impression: Laceration of scalp Qualifiers: Encounter type: initial encounter Qualified Code(s): S01.01XA - Laceration without foreign body of scalp, initial encounter Fall from bed Qualifiers: Encounter type: initial encounter Qualified Code(s): W06.XXXA - Fall from bed, initial encounter Condition: Stable Prescriptions: No Action omeprazole magnesium [Prilosec OTC] 20 mg tablet,delayed release (DR/EC) 20 mg PO DAILY PRN (Reason: REflux) atorvastatin 20 mg tablet 40 mg PO DAILY@21 Qty: 180 3RF lamotrigine 200 mg tablet 200 mg PO BID Qty: 180 3RF clopidogrel 75 mg tablet 75 mg PO DAILY@09 Qty: 90 3RF lorazepam 0.5 mg tablet 0.5 mg PO BID PRN (Reason: anxiety) Qty: 60 5RF losartan 25 mg tablet 12.5 mg PO DAILY@09 Qty: 90 3RF ergocalciferol (vitamin D2) 1,250 mcg (50,000 unit) capsule See Rx Instructions .ROUTE .COMPLEX Qty: 12 4RF Dose Instruction: TAKE ONE CAPSULE BY MOUTH EVERY 7 DAYS ON WEDNESDAY Rx Instructions: TAKE ONE CAPSULE BY MOUTH EVERY 7 DAYS ON WEDNESDAY epinephrine [EpiPen] 0.3 mg/0.3 mL auto-injector 0.3 mg IM Q10M PRN (Reason: anaphylaxis) Qty: 1 0RF Rx Instructions: for 2 doses aspirin 325 mg tablet,delayed release (DR/EC) 325 mg PO DAILY@09 allopurinol 100 mg tablet 200 mg PO DAILY Rx Instructions: TAKE 2 TABLETS BY MOUTH ONCE DAILY FOR URIC ACID metoprolol succinate 25 mg tablet extended release 24 hr 12.5 mg PO DAILY Rx Instructions: TAKE 1/2 TABLET BY MOUTH DAILY escitalopram oxalate 10 mg tablet 10 mg PO DAILY Rx Instructions: TAKE 1 TABLET BY MOUTH ONCE DAILY FOR ANXIETY Discharge Orders: Discharge ED (Routine); Ordered 09/07/24 Ordered By: Mirian Stephens Referrals: Valentin Valiente DO [Primary Care Provider] - Patient Instructions: Scalp Laceration, Head Injury (DC) Coding Level of Care Code ED Labor Crew Supervisor for Bre Caldwell
[2024-09-07 16:52] VITALS: BP 185/102; PULSE 53; RESP 16; RESP 17; O2SAT 96
== END 2024-09-07 16:53 | disposition home or self-care (01) ==
PROVIDERS: Emergency Provider Physician Assistant; PCP Family Medicine
DX: S01.01XA Laceration without foreign body of scalp, initial encounter (principal); W06.XXXA Fall from bed, initial encounter; Z79.02 Long term (current) use of antithrombotics/antiplatelets; Z79.82 Long term (current) use of aspirin; Z86.73 Personal history of transient ischemic attack (TIA), and cerebral infarction without residual deficits
CPT/HCPCS: 12002; 70450; 72125; 99284

== ENCOUNTER 2024-10-06 09:54 | Outpatient (CLI) | payer MEDICARE, OTHER, SELFPAY ==
--- NOTE | 2024-10-06 10:15 | USCV_ITS ---
HazelBari hernandez Age: 74 Gender: M : 1950 Exam Date: 10/06/2024 10:23 Ordering Phys: Robe Woodard MD ([email or web address]) Technologist: [place] [facility] [place]: lt side ica stent Risk Factors: Previous Vascular Surgery: Right Brachial BP: / Left Brachial BP: / Right Left Velocity (cm/s) Spectral Plaque Velocity (cm/s) Spectral Plaque Syst/Diast Broadening Syst/Diast Broadening 46.50/ 10.20 Prox CCA 107.60/ 25.40 45.20/ 16.70 Hetro Mid CCA 107.60/ 22.90 27.10/ 7.40 Hetro Distal CCA 115.30/ 22.90 172.40/41.00 Hetro Prox ICA 102.40/ 14.80 64.10/ Hetro Mid ICA 62.40 / 12.30 64.10/ Distal ICA 104.90/ 34.80 41.20 ECA 112.50 6.30 ICA/CCA 0.90 Antegrade Vertebral Antegrade 43.00/ 10.00 cm/s 76.80/ 17.10 cm/s Bi Subclavian Bi 228.4 143.4 0 0 FINDINGS Comparison:. CTA 08/20/21, US 03/27/24. Progression of right ICA stenosis since the prior exam. Now there is complete occlusion vs near complete occlusio of the proximal right ICA. Abnormal waveform proximal to the stenosis and reversal distal of the stenosis. Left ICA stent is patent. CONCLUSIONS Progression of right ICA obstruction since the prior exam. Complete occlusion vs near complete occlusion proximal right ICA. Recommend carotid CTA. Patent left carotid stent. Diffuse advanced atherosclerotic disease. Dr. Vashti Proctor DO (Electronically Signed) Final Date: 06 October 2024 11:25 S
== END 2024-10-06 09:55 | disposition home or self-care (01) ==
LOC: RAD 09:55
PROVIDERS: PCP Family Medicine; Visit Provider Internal Medicine Cardiovascular Disease
DX: I65.21 Occlusion and stenosis of right carotid artery (principal); Z95.5 Presence of coronary angioplasty implant and graft
CPT/HCPCS: 93880; 99213

== ENCOUNTER → 2024-10-11 10:11 | Outpatient (BNVA) | payer MEDICARE, OTHER, SELFPAY | PROVIDERS: PCP Family Medicine; Visit Provider Nurse Practitioner Family | DX: I65.23 Occlusion and stenosis of bilateral carotid arteries (principal); Z98.890 Other specified postprocedural states; Z95.828 Presence of other vascular implants and grafts; I10 Essential (primary) hypertension; K21.9 Gastro-esophageal reflux disease without esophagitis; Z86.73 Personal history of transient ischemic attack (TIA), and cerebral infarction without residual deficits; Z87.891 Personal history of nicotine dependence | CPT/HCPCS: 99214 ==

== ENCOUNTER 2024-10-16 15:43 | Outpatient (CLI) | payer MEDICARE, OTHER, SELFPAY ==
--- NOTE | 2024-10-16 15:45 | CT_ITS ---
WS: [id number] CT ANGIOGRAM CAROTID ARTERIES HISTORY: Nearly occluded Right carotid on US TECHNIQUE: CT angiogram is performed of the carotid arteries. During arterial injection imaging is ob tained from the skull base to the aortic arch in 1.25 mm imaging. Coronal and sagittal reformats are submitted, MIP imaging also reviewed. Additional multiplanar reformats of the carotid arteries are haque bmitted. NASCET criteria utilized. All CT scans at [facility] use at least one of these dose optimization techniques: automated exposure control; mA and/or kV adjustment per patient size (includ es targeted exams where dose is matched to clinical indication); or iterative reconstruction. CONTRAST: Omnipaque 350; 100 mL IV. DLP: 335.60 mGy.cm COMPARISON: Carotid ultrasound 10/06/2024, prior CT angiogram 08/20/2021 Right carotid: Common carotid artery: Arises normally from the innominate artery. No significant plaque or stenosis. Mild plaque and tortuosity. Internal carotid artery: Beginning at the bifurcation there is heavy dense calcified plaque extending over a length of 2.3 cm with asymmetric narrowing of the lumen. Combination of calcified plaque with intimal thickening. Stenosis is calculated at 65% but visually the stenosis is greater than 80%. External carotid artery: Dense calcified plaque in the proximal external carotid artery with near occ lusion. Left carotid: Common carotid artery: Small amount calcified plaque at the origin from the arch. Increasing plaque i n the mid common carotid artery towards the bifurcation. Internal carotid artery: LEFT internal carotid artery stent is patent. Only mild narrowing of the dis deandre stent. External carotid artery: Patent. Right vertebral artery: Unremarkable. Left vertebral artery: Focal plaque with stenosis proximal LEFT vertebral artery prior to entering th e transverse foramina. Subclavian arteries: No stenosis or abnormality identified. Upper thorax: Calcified plaque in the posterior LEFT upper thorax. Mild atherosclerosis aorta. Thyroid gland: Atrophied. Osseous structures: C3 anterolisthesis by 5 mm. Skull base: Moderate calcified plaque in the intracranial cavernous carotid arteries but no high-grad e stenosis. CT/CT angio neck [id number] IMPRESSION: 1. Dense calcified plaque with stenosis involving the proximal RIGHT ICA. Visu ally stenosis has mildly progressed since 08/20/2021. Stenosis estimated just g reater than 80%. 2. LEFT ICA stent is patent with mild narrowing. 3. Dense calcified plaque with stenosis proximal LEFT vertebral artery. 4. Heavily calcified proximal RIGHT external carotid artery with high-grade st enosis.
[2024-10-16 16:13] LABS: Blood Urea Nitrogen 16 mg/dL (8-23)
[2024-10-16] MEDS: iohexol 350 mg/mL 500 mL Btl (per mL) IV (16:26)
== END 2024-10-16 15:44 | disposition home or self-care (01) ==
LOC: RAD 15:43
PROVIDERS: PCP Family Medicine; Visit Provider Nurse Practitioner Family
DX: I65.23 Occlusion and stenosis of bilateral carotid arteries (principal); I10 Essential (primary) hypertension; I65.02 Occlusion and stenosis of left vertebral artery; I77.1 Stricture of artery; I70.0 Atherosclerosis of aorta; R93.89 Abnormal findings on diagnostic imaging of other specified body structures; E03.4 Atrophy of thyroid (acquired); M43.12 Spondylolisthesis, cervical region
CPT/HCPCS: 70498; 82565; 84520

== ENCOUNTER → 2024-11-29 10:40 | Outpatient (BNVA) | payer MEDICARE, OTHER, SELFPAY | PROVIDERS: PCP Family Medicine; Visit Provider Specialist | DX: I72.5 Aneurysm of other precerebral arteries (principal); R29.90 Unspecified symptoms and signs involving the nervous system; R56.9 Unspecified convulsions | CPT/HCPCS: 99214 ==

== ENCOUNTER 2024-12-07 10:02 | Outpatient (CLI) | payer MEDICARE, OTHER, SELFPAY ==
--- NOTE | 2024-12-07 10:00 | MR_ITS ---
WS: [email or web address] MRA HEAD TECHNIQUE: Axial 3-D TOF images obtained with axial images and axial, sagittal, and coronal 2-D reformatted images. 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 No significant progression. Distal vertebral arteries are patent. Normal vascularity to the [employer] territory bilaterally. Both ICAs are patent at the skull base. Normal vascularity to the WANDA and MCA territories bilaterally. Patent anterior communicating artery. Hypoplastic right A1 segment. Chronic infarct in the left frontal parietal junction with encephalomalacia and gliosis. This is unchanged in appearance compared to previous. MR/MR angio head wo con [id number] IMPRESSION: 1. No significant changes compared to previous. 2. 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 No evidence of flow-limiting stenosis 4. No remarkable changes since 2019
== END 2024-12-07 10:03 | disposition home or self-care (01) ==
PROVIDERS: PCP Family Medicine; Visit Provider Specialist
DX: R51.9 Headache, unspecified (principal); I72.5 Aneurysm of other precerebral arteries; R93.0 Abnormal findings on diagnostic imaging of skull and head, not elsewhere classified
CPT/HCPCS: 70544

== ENCOUNTER → 2025-01-11 15:48 | Outpatient (BNVA) | payer MEDICARE, OTHER, SELFPAY | PROVIDERS: PCP Family Medicine; Visit Provider Family Medicine | DX: E03.9 Hypothyroidism, unspecified (principal); I10 Essential (primary) hypertension; I73.9 Peripheral vascular disease, unspecified; I63.9 Cerebral infarction, unspecified; R56.9 Unspecified convulsions; G47.33 Obstructive sleep apnea (adult) (pediatric) | CPT/HCPCS: 80053; 80061; 82306; 82607; 83036; 84443; 85025 ==

== ENCOUNTER → 2025-07-05 15:13 | Outpatient (BNVA) | payer MEDICARE, OTHER, SELFPAY | PROVIDERS: PCP Family Medicine; Visit Provider Family Medicine | DX: I10 Essential (primary) hypertension (principal); Z98.890 Other specified postprocedural states; Z95.828 Presence of other vascular implants and grafts; I73.9 Peripheral vascular disease, unspecified; I65.21 Occlusion and stenosis of right carotid artery; I63.9 Cerebral infarction, unspecified; I72.5 Aneurysm of other precerebral arteries; R56.9 Unspecified convulsions; G47.33 Obstructive sleep apnea (adult) (pediatric); R73.9 Hyperglycemia, unspecified; E03.9 Hypothyroidism, unspecified; M19.90 Unspecified osteoarthritis, unspecified site | CPT/HCPCS: 80053; 80061; 83036; 84443; 84550; 85025 ==